=== PATIENT | male | born 1955 | race Hispanic/Latino ===

== ENCOUNTER 2016-11-14 09:49 | Outpatient (CLI) | payer MEDICARE ==
[2016-11-14] MEDS ORDERED: XYLOCAINE TOPICAL 4% TP ONE ×2 (10:36→16:01)
[2016-11-14] MEDS ORDERED: NACL 0.9% 500 ML IR ONE (12:28)
[2016-11-14] MEDS ORDERED: NACL 0.9% IR ONE (15:59)
== END 2016-11-14 09:50 | disposition home or self-care (01) ==
LOC: WOUND 09:49
PROVIDERS: ATTEND Internal Medicine
DX: I87.311 Chronic venous hypertension (idiopathic) with ulcer of right lower extremity (principal); L97.811 Non-pressure chronic ulcer of other part of right lower leg limited to breakdown of skin; M05.59 Rheumatoid polyneuropathy with rheumatoid arthritis of multiple sites; M06.9 Rheumatoid arthritis, unspecified; F17.210 Nicotine dependence, cigarettes, uncomplicated

== ENCOUNTER 2016-11-21 09:55 | Outpatient (CLI) | payer MEDICARE ==
[2016-11-21] MEDS ORDERED: XYLOCAINE TOPICAL 4% TP ONE ×2 (10:38→16:00)
== END 2016-11-21 09:56 | disposition home or self-care (01) ==
LOC: WOUND 09:55
PROVIDERS: ATTEND Surgery
DX: I87.311 Chronic venous hypertension (idiopathic) with ulcer of right lower extremity (principal); L97.811 Non-pressure chronic ulcer of other part of right lower leg limited to breakdown of skin; M05.59 Rheumatoid polyneuropathy with rheumatoid arthritis of multiple sites; F17.210 Nicotine dependence, cigarettes, uncomplicated

== ENCOUNTER 2016-11-26 09:10 | Outpatient (CLI) | payer MEDICARE ==
[2016-11-26 09:39] LABS: Hematocrit 33.3 % (35.5-45.6); Hemoglobin 10.3 gm/dl (11.8-15.2); Mean Corpuscular HGB Conc 31 % (32-34); Mean Corpuscular Volume 80 fl (84-94); Platelet Count 395 K/mm3 (140-440); Red Blood Count 4.16 M/mm3 (3.65-5.03); Red Cell Distribution Width 18.1 % (13.2-15.2); White Blood Count 11.2 K/mm3 (4.5-11.0)
[2016-11-26 09:40] LABS: Mean Corpuscular Hemoglobin 25 pg (28-32)
[2016-11-26 10:04] LABS: Alanine Aminotransferase 17 units/L (7-56); Albumin 3.2 g/dL (3.9-5); Albumin/Globulin Ratio 0.7 %; Alkaline Phosphatase 77 units/L (35-129); Anion Gap 19 mmol/L; Blood Urea Nitrogen 20 mg/dL (9-20); Carbon Dioxide 24 mmol/L (22-30); Chloride 100.9 mmol/L (98-107); Glucose 127 mg/dL (75-100); Potassium 4.2 mmol/L (3.6-5.0); Sodium 140 mmol/L (137-145); Total Protein 7.5 g/dL (6.3-8.2)
== END 2016-11-26 09:11 | disposition home or self-care (01) ==
LOC: LAB 09:10
PROVIDERS: ATTEND Surgery
DX: S81.801A Unspecified open wound, right lower leg, initial encounter (principal); X58.XXXA Exposure to other specified factors, initial encounter; Y93.89 Activity, other specified; Y92.89 Other specified places as the place of occurrence of the external cause; Y99.8 Other external cause status
CPT/HCPCS: 36415; 80053; 82040; 85027

== ENCOUNTER 2016-11-28 09:42 | Outpatient (CLI) | payer MEDICARE ==
[2016-11-28] MEDS ORDERED: XYLOCAINE TOPICAL 4% TP ONE ×2 (10:26→11:00)
== END 2016-11-28 09:43 | disposition home or self-care (01) ==
LOC: WOUND 09:42
PROVIDERS: ATTEND Surgery
DX: I87.311 Chronic venous hypertension (idiopathic) with ulcer of right lower extremity (principal); L97.811 Non-pressure chronic ulcer of other part of right lower leg limited to breakdown of skin; E44.1 Mild protein-calorie malnutrition; M05.59 Rheumatoid polyneuropathy with rheumatoid arthritis of multiple sites; F17.210 Nicotine dependence, cigarettes, uncomplicated

== ENCOUNTER 2016-12-05 09:52 | Outpatient (CLI) | payer MEDICARE ==
[2016-12-05] MEDS ORDERED: XYLOCAINE TOPICAL 4% TP ONE ×2 (10:21→15:33)
== END 2016-12-05 09:53 | disposition home or self-care (01) ==
LOC: WOUND 09:52
PROVIDERS: ATTEND Surgery
DX: I87.311 Chronic venous hypertension (idiopathic) with ulcer of right lower extremity (principal); L97.811 Non-pressure chronic ulcer of other part of right lower leg limited to breakdown of skin; M06.9 Rheumatoid arthritis, unspecified; F17.210 Nicotine dependence, cigarettes, uncomplicated

== ENCOUNTER 2016-12-12 09:48 | Outpatient (CLI) | payer MEDICARE ==
[2016-12-12] MEDS ORDERED: XYLOCAINE TOPICAL 4% TP ONE ×2 (10:30→10:57)
== END 2016-12-12 09:49 | disposition home or self-care (01) ==
LOC: WOUND 09:48
PROVIDERS: ATTEND Surgery
DX: I87.311 Chronic venous hypertension (idiopathic) with ulcer of right lower extremity (principal); L97.811 Non-pressure chronic ulcer of other part of right lower leg limited to breakdown of skin; M06.9 Rheumatoid arthritis, unspecified; F17.210 Nicotine dependence, cigarettes, uncomplicated

== ENCOUNTER 2016-12-19 09:43 | Outpatient (CLI) | payer MEDICARE ==
[2016-12-19] MEDS ORDERED: XYLOCAINE TOPICAL 4% TP ONE (10:49)
== END 2016-12-19 09:44 | disposition home or self-care (01) ==
LOC: WOUND 09:43
PROVIDERS: ATTEND Internal Medicine
DX: I87.311 Chronic venous hypertension (idiopathic) with ulcer of right lower extremity (principal); L97.811 Non-pressure chronic ulcer of other part of right lower leg limited to breakdown of skin; M06.9 Rheumatoid arthritis, unspecified; F17.210 Nicotine dependence, cigarettes, uncomplicated

== ENCOUNTER 2016-12-26 09:46 | Outpatient (CLI) | payer MEDICARE ==
[2016-12-26] MEDS ORDERED: XYLOCAINE TOPICAL 4% TP ONE ×2 (10:19→10:30)
== END 2016-12-26 09:47 | disposition home or self-care (01) ==
LOC: WOUND 09:46
PROVIDERS: ATTEND Surgery
DX: S81.801D Unspecified open wound, right lower leg, subsequent encounter (principal); S91.109D Unspecified open wound of unspecified toe(s) without damage to nail, subsequent encounter; M05.59 Rheumatoid polyneuropathy with rheumatoid arthritis of multiple sites; M19.90 Unspecified osteoarthritis, unspecified site; F17.210 Nicotine dependence, cigarettes, uncomplicated; X58.XXXD Exposure to other specified factors, subsequent encounter

== ENCOUNTER 2017-01-02 09:37 | Outpatient (CLI) | payer MEDICARE ==
[2017-01-02] MEDS ORDERED: XYLOCAINE TOPICAL 4% TP ONE (09:56)
[2017-01-02] MEDS ORDERED: AD OINTMENT TP PRN (11:08)
== END 2017-01-02 09:38 | disposition home or self-care (01) ==
LOC: WOUND 09:37
PROVIDERS: ATTEND Surgery
DX: I87.311 Chronic venous hypertension (idiopathic) with ulcer of right lower extremity (principal); L97.811 Non-pressure chronic ulcer of other part of right lower leg limited to breakdown of skin; M05.59 Rheumatoid polyneuropathy with rheumatoid arthritis of multiple sites; M19.90 Unspecified osteoarthritis, unspecified site; F17.210 Nicotine dependence, cigarettes, uncomplicated
CPT/HCPCS: A6250

== ENCOUNTER 2017-01-09 09:52 | Outpatient (CLI) | payer MEDICARE ==
[2017-01-09] MEDS ORDERED: XYLOCAINE TOPICAL 4% TP ONE (12:50)
== END 2017-01-09 09:53 | disposition home or self-care (01) ==
LOC: WOUND 09:52
PROVIDERS: ATTEND Surgery
DX: I87.311 Chronic venous hypertension (idiopathic) with ulcer of right lower extremity (principal); L97.811 Non-pressure chronic ulcer of other part of right lower leg limited to breakdown of skin; M06.9 Rheumatoid arthritis, unspecified; M19.90 Unspecified osteoarthritis, unspecified site; F17.210 Nicotine dependence, cigarettes, uncomplicated

== ENCOUNTER 2017-01-30 10:00 | Outpatient (CLI) | payer MEDICARE ==
[2017-01-30] MEDS ORDERED: XYLOCAINE TOPICAL 4% TP ONE ×2 (10:54→11:19)
== END 2017-01-30 10:01 | disposition home or self-care (01) ==
LOC: WOUND 10:00
PROVIDERS: ATTEND Surgery
DX: I87.311 Chronic venous hypertension (idiopathic) with ulcer of right lower extremity (principal); L97.511 Non-pressure chronic ulcer of other part of right foot limited to breakdown of skin; M06.9 Rheumatoid arthritis, unspecified; M19.90 Unspecified osteoarthritis, unspecified site; F17.210 Nicotine dependence, cigarettes, uncomplicated

== ENCOUNTER 2017-02-06 09:42 | Outpatient (CLI) | payer MEDICARE ==
[2017-02-06] MEDS ORDERED: XYLOCAINE TOPICAL 4% TP ONE ×2 (10:37→10:48)
[2017-02-06] MEDS ORDERED: SILVER NITRATE TP ONE ×2 (10:59→15:07)
== END 2017-02-06 09:43 | disposition home or self-care (01) ==
LOC: WOUND 09:42
PROVIDERS: ATTEND Surgery
DX: I87.311 Chronic venous hypertension (idiopathic) with ulcer of right lower extremity (principal); L97.811 Non-pressure chronic ulcer of other part of right lower leg limited to breakdown of skin; M06.9 Rheumatoid arthritis, unspecified; M19.90 Unspecified osteoarthritis, unspecified site; F17.210 Nicotine dependence, cigarettes, uncomplicated

== ENCOUNTER 2017-02-13 13:07 | Outpatient (CLI) | payer MEDICARE ==
[2017-02-13] MEDS ORDERED: XYLOCAINE TOPICAL 4% TP ONE ×2 (13:28→13:53)
[2017-02-13] MEDS ORDERED: SILVER NITRATE TP ONE ×2 (14:01→16:20)
== END 2017-02-13 13:08 | disposition home or self-care (01) ==
LOC: WOUND 13:07
PROVIDERS: ATTEND Surgery
DX: I87.311 Chronic venous hypertension (idiopathic) with ulcer of right lower extremity (principal); L97.811 Non-pressure chronic ulcer of other part of right lower leg limited to breakdown of skin; M06.9 Rheumatoid arthritis, unspecified; M19.90 Unspecified osteoarthritis, unspecified site; F17.210 Nicotine dependence, cigarettes, uncomplicated

== ENCOUNTER 2017-02-20 09:30 | Outpatient (CLI) | payer MEDICARE ==
[2017-02-20] MEDS ORDERED: XYLOCAINE TOPICAL 4% TP ONE ×2 (09:47→10:18)
== END 2017-02-20 09:31 | disposition home or self-care (01) ==
LOC: WOUND 09:30
PROVIDERS: ATTEND Surgery
DX: I87.311 Chronic venous hypertension (idiopathic) with ulcer of right lower extremity (principal); L97.811 Non-pressure chronic ulcer of other part of right lower leg limited to breakdown of skin; M06.9 Rheumatoid arthritis, unspecified; M19.90 Unspecified osteoarthritis, unspecified site; F17.210 Nicotine dependence, cigarettes, uncomplicated

== ENCOUNTER 2017-02-27 08:54 | Outpatient (CLI) | payer MEDICARE ==
[2017-02-27] MEDS ORDERED: XYLOCAINE TOPICAL 4% TP ONE ×2 (09:22→14:02)
[2017-02-27] MEDS ORDERED: NACL 0.9% 500 ML IR ONE (10:09)
[2017-02-27] MEDS ORDERED: NACL 0.9% IR PRN (14:02)
== END 2017-02-27 08:55 | disposition home or self-care (01) ==
LOC: WOUND 08:54
PROVIDERS: ATTEND Surgery
DX: I87.311 Chronic venous hypertension (idiopathic) with ulcer of right lower extremity (principal); L97.811 Non-pressure chronic ulcer of other part of right lower leg limited to breakdown of skin; M05.59 Rheumatoid polyneuropathy with rheumatoid arthritis of multiple sites; F17.200 Nicotine dependence, unspecified, uncomplicated

== ENCOUNTER 2017-03-06 08:50 | Outpatient (CLI) | payer MEDICARE ==
[2017-03-06] MEDS ORDERED: XYLOCAINE TOPICAL 4% TP ONE ×2 (09:30→09:40)
== END 2017-03-06 08:51 | disposition home or self-care (01) ==
LOC: WOUND 08:50
PROVIDERS: ATTEND Surgery
DX: I87.311 Chronic venous hypertension (idiopathic) with ulcer of right lower extremity (principal); L97.811 Non-pressure chronic ulcer of other part of right lower leg limited to breakdown of skin; M05.59 Rheumatoid polyneuropathy with rheumatoid arthritis of multiple sites; M19.90 Unspecified osteoarthritis, unspecified site; F17.200 Nicotine dependence, unspecified, uncomplicated

== ENCOUNTER 2017-03-13 08:46 | Outpatient (CLI) | payer MEDICARE ==
[2017-03-13] MEDS ORDERED: XYLOCAINE TOPICAL 4% TP ONE ×2 (09:02→09:40)
== END 2017-03-13 08:47 | disposition home or self-care (01) ==
LOC: WOUND 08:46
PROVIDERS: ATTEND Surgery
DX: I87.311 Chronic venous hypertension (idiopathic) with ulcer of right lower extremity (principal); L97.811 Non-pressure chronic ulcer of other part of right lower leg limited to breakdown of skin; M06.9 Rheumatoid arthritis, unspecified; M19.90 Unspecified osteoarthritis, unspecified site; F17.210 Nicotine dependence, cigarettes, uncomplicated

== ENCOUNTER 2017-03-20 09:08 | Outpatient (CLI) | payer MEDICARE ==
[2017-03-20] MEDS ORDERED: XYLOCAINE TOPICAL 4% TP ONE ×2 (09:32→11:01)
[2017-03-20] MEDS ORDERED: XYLOCAINE TOPICAL 2% TP ONE (09:33)
== END 2017-03-20 09:09 | disposition home or self-care (01) ==
LOC: WOUND 09:08
PROVIDERS: ATTEND Surgery
DX: I87.311 Chronic venous hypertension (idiopathic) with ulcer of right lower extremity (principal); L97.811 Non-pressure chronic ulcer of other part of right lower leg limited to breakdown of skin; M06.9 Rheumatoid arthritis, unspecified; M19.90 Unspecified osteoarthritis, unspecified site; F17.210 Nicotine dependence, cigarettes, uncomplicated

== ENCOUNTER 2017-03-27 09:00 | Outpatient (CLI) | payer MEDICARE ==
[2017-03-27] MEDS ORDERED: XYLOCAINE TOPICAL 2% TP ONE (09:22)
[2017-03-27] MEDS ORDERED: XYLOCAINE TOPICAL 4% TP ONE (09:22)
[2017-04-03] MEDS ORDERED: XYLOCAINE TOPICAL 2% ONE (14:14)
[2017-04-03] MEDS ORDERED: XYLOCAINE TOPICAL 4% TP ONE ×2 (14:14→14:18)
== END 2017-04-03 13:40 | disposition home or self-care (01) ==
LOC: WOUND 09:00
PROVIDERS: ATTEND Surgery
DX: I87.311 Chronic venous hypertension (idiopathic) with ulcer of right lower extremity (principal); L97.811 Non-pressure chronic ulcer of other part of right lower leg limited to breakdown of skin; M06.9 Rheumatoid arthritis, unspecified; M19.90 Unspecified osteoarthritis, unspecified site; F17.210 Nicotine dependence, cigarettes, uncomplicated

== ENCOUNTER 2017-04-03 13:39 | Outpatient (CLI) | payer MEDICARE | END 2017-04-03 13:40 | disposition home or self-care (01) | LOC: WOUND 13:39 | PROVIDERS: ATTEND Surgery | DX: I87.311 Chronic venous hypertension (idiopathic) with ulcer of right lower extremity (principal); L97.511 Non-pressure chronic ulcer of other part of right foot limited to breakdown of skin; L97.811 Non-pressure chronic ulcer of other part of right lower leg limited to breakdown of skin; M05.59 Rheumatoid polyneuropathy with rheumatoid arthritis of multiple sites; M19.90 Unspecified osteoarthritis, unspecified site; F17.200 Nicotine dependence, unspecified, uncomplicated ==

== ENCOUNTER 2017-04-10 08:36 | Outpatient (CLI) | payer MEDICARE ==
[2017-04-10] MEDS ORDERED: XYLOCAINE TOPICAL 2% TP ONE ×2 (08:49→15:53)
[2017-04-10] MEDS ORDERED: XYLOCAINE TOPICAL 4% TP ONE ×2 (08:50→15:53)
== END 2017-04-10 08:37 | disposition home or self-care (01) ==
LOC: WOUND 08:36
PROVIDERS: ATTEND Surgery
DX: I87.311 Chronic venous hypertension (idiopathic) with ulcer of right lower extremity (principal); L97.811 Non-pressure chronic ulcer of other part of right lower leg limited to breakdown of skin; L97.511 Non-pressure chronic ulcer of other part of right foot limited to breakdown of skin; M05.59 Rheumatoid polyneuropathy with rheumatoid arthritis of multiple sites; M19.90 Unspecified osteoarthritis, unspecified site; F17.200 Nicotine dependence, unspecified, uncomplicated

== ENCOUNTER 2017-04-17 09:58 | Outpatient (CLI) | payer MEDICARE ==
[2017-04-17] MEDS ORDERED: XYLOCAINE TOPICAL 4% TP ONE (10:41)
[2017-04-17] MEDS ORDERED: XYLOCAINE TOPICAL 2% TP ONE (10:42)
== END 2017-04-17 09:59 | disposition home or self-care (01) ==
LOC: WOUND 09:58
PROVIDERS: ATTEND Surgery
DX: I87.311 Chronic venous hypertension (idiopathic) with ulcer of right lower extremity (principal); L97.811 Non-pressure chronic ulcer of other part of right lower leg limited to breakdown of skin; M06.9 Rheumatoid arthritis, unspecified; M19.90 Unspecified osteoarthritis, unspecified site; F17.210 Nicotine dependence, cigarettes, uncomplicated

== ENCOUNTER 2017-04-24 10:14 | Outpatient (CLI) | payer MEDICARE ==
[2017-04-24] MEDS ORDERED: XYLOCAINE TOPICAL 4% TP ONE ×2 (11:00→12:00)
[2017-04-24] MEDS ORDERED: SILVER NITRATE TP ONE ×2 (11:22→15:05)
[2017-04-24] MEDS ORDERED: XYLOCAINE TOPICAL 2% TP ONE (11:30)
== END 2017-04-24 10:15 | disposition home or self-care (01) ==
LOC: WOUND 10:14
PROVIDERS: ATTEND Surgery
DX: I87.311 Chronic venous hypertension (idiopathic) with ulcer of right lower extremity (principal); L97.811 Non-pressure chronic ulcer of other part of right lower leg limited to breakdown of skin; M06.9 Rheumatoid arthritis, unspecified; M19.90 Unspecified osteoarthritis, unspecified site; F17.210 Nicotine dependence, cigarettes, uncomplicated

== ENCOUNTER 2017-05-01 09:54 | Outpatient (CLI) | payer MEDICARE ==
[2017-05-01] MEDS ORDERED: XYLOCAINE TOPICAL 2% TP ONE ×2 (10:00→10:02)
[2017-05-01] MEDS ORDERED: XYLOCAINE TOPICAL 4% TP ONE ×2 (10:00→10:02)
== END 2017-05-01 09:55 | disposition home or self-care (01) ==
LOC: WOUND 09:54
PROVIDERS: ATTEND Surgery
DX: I87.311 Chronic venous hypertension (idiopathic) with ulcer of right lower extremity (principal); L97.811 Non-pressure chronic ulcer of other part of right lower leg limited to breakdown of skin; M06.9 Rheumatoid arthritis, unspecified; F17.210 Nicotine dependence, cigarettes, uncomplicated

== ENCOUNTER 2017-05-08 09:51 | Outpatient (CLI) | payer MEDICARE ==
[2017-05-08] MEDS ORDERED: XYLOCAINE TOPICAL 4% TP ONE ×2 (10:33→12:00)
[2017-05-08] MEDS ORDERED: XYLOCAINE TOPICAL 2% TP ONE ×2 (10:33→11:09)
[2017-05-08] MEDS ORDERED: NACL 0.9% IR PRN (11:45)
[2017-05-08] MEDS ORDERED: NACL 0.9% 500 ML IR ONE (11:50)
== END 2017-05-08 09:52 | disposition home or self-care (01) ==
LOC: WOUND 09:51
PROVIDERS: ATTEND Surgery
DX: I87.311 Chronic venous hypertension (idiopathic) with ulcer of right lower extremity (principal); L97.511 Non-pressure chronic ulcer of other part of right foot limited to breakdown of skin; M06.9 Rheumatoid arthritis, unspecified; M19.90 Unspecified osteoarthritis, unspecified site; F17.210 Nicotine dependence, cigarettes, uncomplicated

== ENCOUNTER 2017-05-22 10:10 | Outpatient (CLI) | payer MEDICARE ==
[2017-05-22] MEDS ORDERED: XYLOCAINE TOPICAL 4% TP ONE ×2 (10:31→10:32)
[2017-05-22] MEDS ORDERED: NACL 0.9% 500 ML IR ONE (10:31)
[2017-05-22] MEDS ORDERED: XYLOCAINE TOPICAL 2% TP ONE ×2 (10:31→10:33)
[2017-05-22] MEDS ORDERED: NACL 0.9% IR PRN (10:34)
== END 2017-05-22 10:11 | disposition home or self-care (01) ==
LOC: WOUND 10:10
PROVIDERS: ATTEND Surgery
DX: I87.311 Chronic venous hypertension (idiopathic) with ulcer of right lower extremity (principal); L97.811 Non-pressure chronic ulcer of other part of right lower leg limited to breakdown of skin; M06.9 Rheumatoid arthritis, unspecified; M19.90 Unspecified osteoarthritis, unspecified site; F17.210 Nicotine dependence, cigarettes, uncomplicated

== ENCOUNTER 2017-05-29 09:43 | Outpatient (CLI) | payer MEDICARE ==
[2017-05-29] MEDS ORDERED: XYLOCAINE TOPICAL 2% TP ONE ×2 (09:59→10:08)
[2017-05-29] MEDS ORDERED: XYLOCAINE TOPICAL 4% TP ONE ×3 (09:59→10:09)
== END 2017-05-29 09:44 | disposition home or self-care (01) ==
LOC: WOUND 09:43
PROVIDERS: ATTEND Surgery
DX: I87.311 Chronic venous hypertension (idiopathic) with ulcer of right lower extremity (principal); L97.811 Non-pressure chronic ulcer of other part of right lower leg limited to breakdown of skin; M19.90 Unspecified osteoarthritis, unspecified site; F17.210 Nicotine dependence, cigarettes, uncomplicated

== ENCOUNTER 2017-06-05 09:26 | Outpatient (CLI) | payer MEDICARE ==
[2017-06-05] MEDS ORDERED: XYLOCAINE TOPICAL 4% TP ONE ×2 (09:40→11:35)
[2017-06-05] MEDS ORDERED: NACL 0.9% 500 ML IR ONE (09:40)
[2017-06-05] MEDS ORDERED: NACL 0.9% 1,000 ML IR ONE (11:20)
[2017-06-05] MEDS ORDERED: NACL 0.9% IR PRN (11:35)
== END 2017-06-05 09:27 | disposition home or self-care (01) ==
LOC: WOUND 09:26
PROVIDERS: ATTEND Surgery
DX: I87.311 Chronic venous hypertension (idiopathic) with ulcer of right lower extremity (principal); L97.511 Non-pressure chronic ulcer of other part of right foot limited to breakdown of skin; L97.811 Non-pressure chronic ulcer of other part of right lower leg limited to breakdown of skin; M19.90 Unspecified osteoarthritis, unspecified site; F17.210 Nicotine dependence, cigarettes, uncomplicated

== ENCOUNTER 2017-06-12 10:06 | Outpatient (CLI) | payer MEDICARE ==
[2017-06-12] MEDS ORDERED: XYLOCAINE TOPICAL 2% 5ML ONE (10:34)
[2017-06-12] MEDS ORDERED: XYLOCAINE TOPICAL 4% TP ONE ×3 (10:34→10:50)
[2017-06-12] MEDS ORDERED: XYLOCAINE TOPICAL 2% 30ML TP ONE (10:46)
[2017-06-12 12:28] LABS: Hematocrit 33.7 % (35.5-45.6); Hemoglobin 10.3 gm/dl (11.8-15.2); Mean Corpuscular HGB Conc 31 % (32-34); Mean Corpuscular Hemoglobin 22 pg (28-32); Mean Corpuscular Volume 72 fl (84-94); Platelet Count 476 K/mm3 (140-440); Red Blood Count 4.72 M/mm3 (3.65-5.03); Red Cell Distribution Width 18.5 % (13.2-15.2); White Blood Count 12.6 K/mm3 (4.5-11.0)
== END 2017-06-12 10:07 | disposition home or self-care (01) ==
LOC: WOUND 10:06
PROVIDERS: ATTEND Surgery
DX: I87.311 Chronic venous hypertension (idiopathic) with ulcer of right lower extremity (principal); L97.811 Non-pressure chronic ulcer of other part of right lower leg limited to breakdown of skin; L97.511 Non-pressure chronic ulcer of other part of right foot limited to breakdown of skin; M05.59 Rheumatoid polyneuropathy with rheumatoid arthritis of multiple sites; F17.210 Nicotine dependence, cigarettes, uncomplicated
CPT/HCPCS: 36415; 85027

== ENCOUNTER 2017-06-17 17:41 | Emergency (ER) | payer MEDICARE ==
--- NOTE | 2017-06-18 02:32 | Emergency Department Report ---
- General Chief Complaint: Wound/Laceration Stated Complaint: BLEEDING LEG ULCER Time Seen by Provider: 06/18/17 02:10 Source: patient Mode of arrival: Wheelchair Limitations: No Limitations - History of Present Illness Initial Comments: 61 yo male who comes in today due to a dressing change. He states that a friend was changing his dressing to his right lower extremity on today and it started to bleed. He states that he sees wound care each Saturday. The wound is a chronic wound and has been present times greater than one year. -: This evening Location: other (right lower extremity) Extremity Location: Right: Lower Leg, Ankle, Foot Place: home Patient Tetanus UTD: Yes Context: other (chronic wound ulcer ) Associated Symptoms: pain Treatments Prior to Arrival: other (pain medication/dressing ) - Related Data Home Medications Medication Instructions Recorded Confirmed Last Taken Naproxen Sodium [Aleve TAB] 660 mg PO DAILY 01/21/17 01/21/17 01/21/17 Previous Rx's Medication Instructions Recorded Last Taken Type HYDROcodone/APAP 10-325 [Anderson 1 each PO PRN #14 tablet 01/23/17 Unknown Rx 10-325 mg TAB] Multivitamin Tab [Multiple Vitamin 1 each PO QDAY #30 tablet 01/23/17 Unknown Rx TAB (Theragran)] Allergies Allergy/AdvReac Type Severity Reaction Status Date / Time Anesthetics - Amide Type Allergy Unknown Verified 11/14/16 10:37 anesthe AdvReac Unknown Uncoded 11/14/16 10:37 ED Review of Systems ROS: Stated complaint: BLEEDING LEG ULCER Other details as noted in HPI Constitutional: denies: chills, fever Eyes: denies: eye pain, eye discharge, vision change ENT: denies: ear pain, throat pain Respiratory: denies: cough, shortness of breath, wheezing Cardiovascular: denies: chest pain, palpitations Endocrine: no symptoms reported Gastrointestinal: denies: abdominal pain, nausea, diarrhea Genitourinary: denies: urgency, dysuria Musculoskeletal: as per HPI Skin: as per HPI Neurological: denies: headache, weakness, paresthesias Psychiatric: denies: anxiety, depression Hematological/Lymphatic: as per HPI. denies: easy bruising ED Past Medical Hx - Past Medical History Previous Medical History?: Yes Hx Congestive Heart Failure: No Hx Diabetes: No Hx Deep Vein Thrombosis: Yes (bilaterally) Hx Arthritis: Yes Hx Asthma: No Hx COPD: No - Surgical History Past Surgical History?: Yes Additional Surgical History: Callus removed from right foot. Wrist surgery, "vascular surgery to shrink veins and right lower extremity" - Social History Smoking Status: Current Every Day Smoker Substance Use Type: None - Medications Home Medications: Home Medications Medication Instructions Recorded Confirmed Last Taken Type Naproxen Sodium [Aleve TAB] 660 mg PO DAILY 01/21/17 01/21/17 01/21/17 History HYDROcodone/APAP 10-325 [Anderson 1 each PO PRN #14 tablet 01/23/17 Unknown Rx 10-325 mg TAB] Multivitamin Tab [Multiple Vitamin 1 each PO QDAY #30 tablet 01/23/17 Unknown Rx TAB (Theragran)] ED Physical Exam - General Limitations: No Limitations General appearance: alert, in no apparent distress - Head Head exam: Present: atraumatic, normocephalic - Eye Eye exam: Present: normal appearance - ENT ENT exam: Present: other (poor dentition ) - Neck Neck exam: Present: normal inspection - Respiratory Respiratory exam: Present: normal lung sounds bilaterally. Absent: respiratory distress - Cardiovascular Cardiovascular Exam: Present: regular rate, normal rhythm. Absent: systolic murmur, diastolic murmur, rubs, gallop - Expanded Lower Extremity Exam Right Lower Leg exam: Present: tenderness, swelling (chronic wound ulcer-right lower extremity, foot, ankle ) Ankle exam: Present: tenderness, swelling (chronic wound ) Foot/Toe exam: Present: tenderness, swelling (wound-2nd digit ) ED Course Vital Signs 06/17/17 17:56 Temperature 98.7 F Pulse Rate 84 Respiratory 16 Rate Blood Pressure 141/66 O2 Sat by Pulse 100 Oximetry - Reevaluation(s) Reevaluation #1: 06/18/17 02:33 Dressing change in the ED. Home to follow up with wound care. ED Medical Decision Making - Medical Decision Making Chronic wound-right lower extremity - Differential Diagnosis chronic wound-right lower extremity Critical care attestation.: If time is entered above; I have spent that time in minutes in the direct care of this critically ill patient, excluding procedure time. ED Disposition Clinical Impression: Chronic wound of extremity Disposition: DC- TO HOME OR SELFCARE Is pt being admited?: No Does the pt Need Aspirin: No Condition: Stable Instructions: Chronic Wound Care (ED) Additional Instructions: May resume your regularly scheduled medication and wound care regimen. Follow up with wound care on Saturday. Referrals: OLGA KEVIN MD [Primary Care Provider] - 3-5 Days Time of Disposition: 02:35
[2017-06-18 03:28] VITALS: BP 136/64
== END 2017-06-18 03:14 | disposition home or self-care (01) ==
LOC: ED 17:41
DX: S81.801A Unspecified open wound, right lower leg, initial encounter (principal); F17.200 Nicotine dependence, unspecified, uncomplicated; Z88.6 Allergy status to analgesic agent; X58.XXXA Exposure to other specified factors, initial encounter; Y93.89 Activity, other specified; Y92.89 Other specified places as the place of occurrence of the external cause; Y99.8 Other external cause status
CPT/HCPCS: 99282

== ENCOUNTER 2017-06-19 09:18 | Outpatient (CLI) | payer MEDICARE ==
[2017-06-19] MEDS ORDERED: XYLOCAINE TOPICAL 4% TP ONE ×2 (10:05→15:35)
[2017-06-19] MEDS ORDERED: NACL 0.9% 500 ML IR ONE (10:05)
[2017-06-19] MEDS ORDERED: NACL 0.9% IR PRN (15:35)
== END 2017-06-19 09:19 | disposition home or self-care (01) ==
LOC: WOUND 09:18
PROVIDERS: ATTEND Surgery
DX: I87.311 Chronic venous hypertension (idiopathic) with ulcer of right lower extremity (principal); L97.811 Non-pressure chronic ulcer of other part of right lower leg limited to breakdown of skin; M06.9 Rheumatoid arthritis, unspecified; M19.90 Unspecified osteoarthritis, unspecified site; F17.210 Nicotine dependence, cigarettes, uncomplicated

== ENCOUNTER 2017-06-26 09:27 | Outpatient (CLI) | payer MEDICARE ==
[2017-06-26] MEDS ORDERED: XYLOCAINE TOPICAL 4% TP ONE ×2 (10:11→15:47)
[2017-06-26] MEDS ORDERED: XYLOCAINE TOPICAL 2% 5ML ONE (10:11)
[2017-06-26] MEDS ORDERED: XYLOCAINE TOPICAL 2% 5ML TP ONE (15:47)
== END 2017-06-26 09:28 | disposition home or self-care (01) ==
LOC: WOUND 09:27
PROVIDERS: ATTEND Surgery
DX: I87.311 Chronic venous hypertension (idiopathic) with ulcer of right lower extremity (principal); L97.811 Non-pressure chronic ulcer of other part of right lower leg limited to breakdown of skin; L97.511 Non-pressure chronic ulcer of other part of right foot limited to breakdown of skin; M19.90 Unspecified osteoarthritis, unspecified site; F17.210 Nicotine dependence, cigarettes, uncomplicated

== ENCOUNTER 2017-07-03 09:51 | Outpatient (CLI) | payer MEDICARE ==
[2017-07-03] MEDS ORDERED: XYLOCAINE TOPICAL 4% TP ONE ×4 (11:25→15:06)
== END 2017-07-03 09:52 | disposition home or self-care (01) ==
LOC: WOUND 09:51
PROVIDERS: ATTEND Surgery
DX: I87.311 Chronic venous hypertension (idiopathic) with ulcer of right lower extremity (principal); L97.811 Non-pressure chronic ulcer of other part of right lower leg limited to breakdown of skin; M06.9 Rheumatoid arthritis, unspecified; M19.90 Unspecified osteoarthritis, unspecified site; F17.210 Nicotine dependence, cigarettes, uncomplicated

== ENCOUNTER 2017-07-10 10:06 | Outpatient (CLI) | payer MEDICARE ==
[2017-07-10] MEDS ORDERED: XYLOCAINE TOPICAL 4% TP ONE (10:14)
[2017-07-10] MEDS ORDERED: NACL 0.9% 500 ML IR ONE (10:21)
[2017-07-10] MEDS ORDERED: NACL 0.9% IR PRN (10:45)
== END 2017-07-10 10:07 | disposition home or self-care (01) ==
LOC: WOUND 10:06
PROVIDERS: ATTEND Surgery
DX: I87.331 Chronic venous hypertension (idiopathic) with ulcer and inflammation of right lower extremity (principal); L97.811 Non-pressure chronic ulcer of other part of right lower leg limited to breakdown of skin; S91.104D Unspecified open wound of right lesser toe(s) without damage to nail, subsequent encounter; S81.801D Unspecified open wound, right lower leg, subsequent encounter; M19.90 Unspecified osteoarthritis, unspecified site; M05.59 Rheumatoid polyneuropathy with rheumatoid arthritis of multiple sites; F17.210 Nicotine dependence, cigarettes, uncomplicated; X58.XXXD Exposure to other specified factors, subsequent encounter

== ENCOUNTER 2017-07-17 10:02 | Outpatient (CLI) | payer MEDICARE ==
[2017-07-17] MEDS ORDERED: XYLOCAINE TOPICAL 4% TP ONE ×2 (10:19→10:21)
[2017-07-17] MEDS ORDERED: NACL 0.9% 500 ML IR ONE (11:02)
[2017-07-17] MEDS ORDERED: NACL 0.9% IR PRN (14:22)
[2017-07-18] MEDS ORDERED: XYLOCAINE TOPICAL 4% TP ONE (15:15)
== END 2017-07-17 10:03 | disposition home or self-care (01) ==
LOC: WOUND 10:02
PROVIDERS: ATTEND Surgery
DX: I87.311 Chronic venous hypertension (idiopathic) with ulcer of right lower extremity (principal); L97.811 Non-pressure chronic ulcer of other part of right lower leg limited to breakdown of skin; S91.104D Unspecified open wound of right lesser toe(s) without damage to nail, subsequent encounter; S81.801D Unspecified open wound, right lower leg, subsequent encounter; M05.59 Rheumatoid polyneuropathy with rheumatoid arthritis of multiple sites; M19.90 Unspecified osteoarthritis, unspecified site; F17.200 Nicotine dependence, unspecified, uncomplicated; X58.XXXD Exposure to other specified factors, subsequent encounter

== ENCOUNTER 2017-07-31 10:03 | Outpatient (CLI) | payer MEDICARE ==
[2017-07-31] MEDS ORDERED: XYLOCAINE TOPICAL 4% TP ONE (10:21)
[2017-07-31] MEDS ORDERED: NACL 0.9% IR PRN (10:22)
== END 2017-07-31 10:04 | disposition home or self-care (01) ==
LOC: WOUND 10:03
PROVIDERS: ATTEND Surgery
DX: I87.311 Chronic venous hypertension (idiopathic) with ulcer of right lower extremity (principal); L97.811 Non-pressure chronic ulcer of other part of right lower leg limited to breakdown of skin; S91.109D Unspecified open wound of unspecified toe(s) without damage to nail, subsequent encounter; M19.90 Unspecified osteoarthritis, unspecified site; M06.9 Rheumatoid arthritis, unspecified; F17.210 Nicotine dependence, cigarettes, uncomplicated; X58.XXXD Exposure to other specified factors, subsequent encounter

== ENCOUNTER 2017-08-07 10:09 | Outpatient (CLI) | payer MEDICARE ==
[2017-08-07] MEDS ORDERED: NACL 0.9% IR PRN (10:26)
[2017-08-07] MEDS ORDERED: XYLOCAINE TOPICAL 4% TP ONE (10:27)
== END 2017-08-07 10:10 | disposition home or self-care (01) ==
LOC: WOUND 10:09
PROVIDERS: ATTEND Surgery
DX: I87.311 Chronic venous hypertension (idiopathic) with ulcer of right lower extremity (principal); M06.9 Rheumatoid arthritis, unspecified; M19.90 Unspecified osteoarthritis, unspecified site; F17.210 Nicotine dependence, cigarettes, uncomplicated

== ENCOUNTER 2017-08-14 10:02 | Outpatient (CLI) | payer MEDICARE ==
[2017-08-14] MEDS ORDERED: XYLOCAINE TOPICAL 4% TP ONE ×3 (10:46→11:06)
[2017-08-14] MEDS ORDERED: SODIUM CHLORIDE FLUSH SYRINGE 10 ML IV ONE (11:03)
[2017-08-14] MEDS ORDERED: SODIUM CHLORIDE FLUSH SYRINGE 10 ML IV PRN (11:07)
== END 2017-08-14 10:03 | disposition home or self-care (01) ==
LOC: WOUND 10:02
PROVIDERS: ATTEND Surgery
DX: I87.311 Chronic venous hypertension (idiopathic) with ulcer of right lower extremity (principal); L97.811 Non-pressure chronic ulcer of other part of right lower leg limited to breakdown of skin; L97.511 Non-pressure chronic ulcer of other part of right foot limited to breakdown of skin; M05.59 Rheumatoid polyneuropathy with rheumatoid arthritis of multiple sites; M19.90 Unspecified osteoarthritis, unspecified site; F17.210 Nicotine dependence, cigarettes, uncomplicated
CPT/HCPCS: 11042; 11045; 15275; Q4158; 15277

== ENCOUNTER 2017-08-21 10:00 | Outpatient (CLI) | payer MEDICARE ==
[2017-08-21] MEDS ORDERED: XYLOCAINE TOPICAL 4% TP ONE ×2 (10:14→10:21)
[2017-08-21] MEDS ORDERED: NACL 0.9% IR PRN (10:15)
[2017-08-21] MEDS ORDERED: NACL 0.9% 500 ML IR ONE (10:21)
[2017-08-21] MEDS ORDERED: SODIUM CHLORIDE FLUSH SYRINGE 10 ML IV ONE (11:15)
[2017-08-21] MEDS ORDERED: AD OINTMENT TP PRN (11:37)
== END 2017-08-21 10:01 | disposition home or self-care (01) ==
LOC: WOUND 10:00
PROVIDERS: ATTEND Surgery
DX: I87.311 Chronic venous hypertension (idiopathic) with ulcer of right lower extremity (principal); L97.811 Non-pressure chronic ulcer of other part of right lower leg limited to breakdown of skin; M06.9 Rheumatoid arthritis, unspecified; M19.90 Unspecified osteoarthritis, unspecified site; F17.210 Nicotine dependence, cigarettes, uncomplicated
CPT/HCPCS: 15273; 15274; Q4158; A6250

== ENCOUNTER 2017-08-28 10:02 | Outpatient (CLI) | payer MEDICARE ==
[2017-08-28] MEDS ORDERED: XYLOCAINE TOPICAL 4% TP ONE (10:13)
[2017-08-28] MEDS ORDERED: SODIUM CHLORIDE FLUSH SYRINGE 10 ML IV ONE (10:22)
[2017-08-28] MEDS ORDERED: SILVER NITRATE TP ONE ×2 (11:05→13:34)
[2017-08-28] MEDS ORDERED: SODIUM CHLORIDE FLUSH SYRINGE 10 ML IV PRN (14:29)
== END 2017-08-28 10:03 | disposition home or self-care (01) ==
LOC: WOUND 10:02
PROVIDERS: ATTEND Surgery
DX: I87.311 Chronic venous hypertension (idiopathic) with ulcer of right lower extremity (principal); L97.811 Non-pressure chronic ulcer of other part of right lower leg limited to breakdown of skin; S91.109D Unspecified open wound of unspecified toe(s) without damage to nail, subsequent encounter; M06.9 Rheumatoid arthritis, unspecified; M19.90 Unspecified osteoarthritis, unspecified site; F17.210 Nicotine dependence, cigarettes, uncomplicated; X58.XXXD Exposure to other specified factors, subsequent encounter
CPT/HCPCS: 15277; Q4158

== ENCOUNTER 2017-09-04 09:55 | Outpatient (CLI) | payer MEDICARE ==
[2017-09-04] MEDS ORDERED: XYLOCAINE TOPICAL 4% TP ONE ×2 (10:02→10:09)
[2017-09-04] MEDS ORDERED: SODIUM CHLORIDE FLUSH SYRINGE 10 ML IV ONE (10:19)
== END 2017-09-04 09:56 | disposition home or self-care (01) ==
LOC: WOUND 09:55
PROVIDERS: ATTEND Surgery
DX: I87.311 Chronic venous hypertension (idiopathic) with ulcer of right lower extremity (principal); L97.811 Non-pressure chronic ulcer of other part of right lower leg limited to breakdown of skin; S91.104D Unspecified open wound of right lesser toe(s) without damage to nail, subsequent encounter; M05.59 Rheumatoid polyneuropathy with rheumatoid arthritis of multiple sites; M19.90 Unspecified osteoarthritis, unspecified site; F17.210 Nicotine dependence, cigarettes, uncomplicated; X58.XXXD Exposure to other specified factors, subsequent encounter

== ENCOUNTER 2017-09-11 09:55 | Outpatient (CLI) | payer MEDICARE ==
[2017-09-11] MEDS ORDERED: XYLOCAINE TOPICAL 4% TP ONE (12:00)
[2017-09-11] MEDS ORDERED: SODIUM CHLORIDE FLUSH SYRINGE 10 ML IV ONE (12:30)
== END 2017-09-11 09:56 | disposition home or self-care (01) ==
LOC: WOUND 09:55
PROVIDERS: ATTEND Surgery
DX: I87.311 Chronic venous hypertension (idiopathic) with ulcer of right lower extremity (principal); L97.811 Non-pressure chronic ulcer of other part of right lower leg limited to breakdown of skin; S91.104D Unspecified open wound of right lesser toe(s) without damage to nail, subsequent encounter; M06.9 Rheumatoid arthritis, unspecified; F17.210 Nicotine dependence, cigarettes, uncomplicated; X58.XXXD Exposure to other specified factors, subsequent encounter
CPT/HCPCS: 11042; 15273; 15274; Q4158; 15275; 15276

== ENCOUNTER 2017-09-18 10:00 | Outpatient (CLI) | payer MEDICARE ==
[2017-09-18] MEDS ORDERED: XYLOCAINE TOPICAL 4% TP ONE (10:11)
[2017-09-18] MEDS ORDERED: NACL 0.9% IR PRN (10:12)
[2017-09-18] MEDS ORDERED: SILVER NITRATE TP ONE ×2 (10:56→11:00)
== END 2017-09-18 10:01 | disposition home or self-care (01) ==
LOC: WOUND 10:00
PROVIDERS: ATTEND Surgery
DX: I87.311 Chronic venous hypertension (idiopathic) with ulcer of right lower extremity (principal); L97.811 Non-pressure chronic ulcer of other part of right lower leg limited to breakdown of skin; S91.104D Unspecified open wound of right lesser toe(s) without damage to nail, subsequent encounter; M06.9 Rheumatoid arthritis, unspecified; F17.210 Nicotine dependence, cigarettes, uncomplicated; X58.XXXD Exposure to other specified factors, subsequent encounter
CPT/HCPCS: 11042; 15273; 15274; Q4158; 15275; 15276

== ENCOUNTER 2017-09-25 10:03 | Outpatient (CLI) | payer MEDICARE ==
[2017-09-25] MEDS ORDERED: XYLOCAINE TOPICAL 4% TP ONE ×2 (10:30→10:41)
[2017-09-25] MEDS ORDERED: SILVER NITRATE TP ONE (10:57)
== END 2017-09-25 10:04 | disposition home or self-care (01) ==
LOC: WOUND 10:03
PROVIDERS: ATTEND Surgery
DX: I87.311 Chronic venous hypertension (idiopathic) with ulcer of right lower extremity (principal); L97.811 Non-pressure chronic ulcer of other part of right lower leg limited to breakdown of skin; S91.104D Unspecified open wound of right lesser toe(s) without damage to nail, subsequent encounter; M19.90 Unspecified osteoarthritis, unspecified site; M06.9 Rheumatoid arthritis, unspecified; F17.210 Nicotine dependence, cigarettes, uncomplicated; X58.XXXD Exposure to other specified factors, subsequent encounter
CPT/HCPCS: 17250

== ENCOUNTER 2017-10-02 10:09 | Outpatient (CLI) | payer MEDICARE ==
[2017-10-02] MEDS ORDERED: XYLOCAINE TOPICAL 4% TP ONE ×3 (10:40→10:52)
[2017-10-02] MEDS ORDERED: SODIUM CHLORIDE FLUSH SYRINGE 10 ML IV ONE ×2 (10:56→13:29)
== END 2017-10-02 10:10 | disposition home or self-care (01) ==
LOC: WOUND 10:09
PROVIDERS: ATTEND Surgery
DX: I87.311 Chronic venous hypertension (idiopathic) with ulcer of right lower extremity (principal); L97.811 Non-pressure chronic ulcer of other part of right lower leg limited to breakdown of skin; S91.104D Unspecified open wound of right lesser toe(s) without damage to nail, subsequent encounter; M06.9 Rheumatoid arthritis, unspecified; F17.210 Nicotine dependence, cigarettes, uncomplicated; X58.XXXD Exposure to other specified factors, subsequent encounter
CPT/HCPCS: 15273; 15274; Q4158; 15277; 15278

== ENCOUNTER 2017-10-09 09:56 | Outpatient (CLI) | payer MEDICARE ==
[2017-10-09] MEDS ORDERED: XYLOCAINE TOPICAL 4% TP ONE ×2 (10:18→10:26)
[2017-10-09] MEDS ORDERED: AD OINTMENT TP PRN (11:17)
== END 2017-10-09 09:57 | disposition home or self-care (01) ==
LOC: WOUND 09:56
PROVIDERS: ATTEND Nurse Practitioner
DX: I87.311 Chronic venous hypertension (idiopathic) with ulcer of right lower extremity (principal); L97.811 Non-pressure chronic ulcer of other part of right lower leg limited to breakdown of skin; S91.109D Unspecified open wound of unspecified toe(s) without damage to nail, subsequent encounter; M06.9 Rheumatoid arthritis, unspecified; E44.0 Moderate protein-calorie malnutrition; F17.210 Nicotine dependence, cigarettes, uncomplicated; X58.XXXD Exposure to other specified factors, subsequent encounter
CPT/HCPCS: A6250

== ENCOUNTER 2017-10-16 09:57 | Outpatient (CLI) | payer MEDICARE ==
[2017-10-16] MEDS ORDERED: XYLOCAINE TOPICAL 4% TP ONE (10:29)
[2017-10-16] MEDS ORDERED: NACL 0.9% IR ONE (10:29)
[2017-10-16] MEDS ORDERED: SODIUM CHLORIDE FLUSH SYRINGE 10 ML IV ONE ×2 (11:19→14:56)
== END 2017-10-16 09:58 | disposition home or self-care (01) ==
LOC: WOUND 09:57
PROVIDERS: ATTEND Surgery
DX: I87.311 Chronic venous hypertension (idiopathic) with ulcer of right lower extremity (principal); L97.811 Non-pressure chronic ulcer of other part of right lower leg limited to breakdown of skin; S91.109D Unspecified open wound of unspecified toe(s) without damage to nail, subsequent encounter; M06.9 Rheumatoid arthritis, unspecified; E44.0 Moderate protein-calorie malnutrition; F17.210 Nicotine dependence, cigarettes, uncomplicated
CPT/HCPCS: 15271; 15272; Q4158

== ENCOUNTER 2017-10-23 09:52 | Outpatient (CLI) | payer MEDICARE ==
[2017-10-23] MEDS ORDERED: XYLOCAINE TOPICAL 4% TP ONE (10:31)
== END 2017-10-23 09:53 | disposition home or self-care (01) ==
LOC: WOUND 09:52
PROVIDERS: ATTEND Surgery
DX: I87.311 Chronic venous hypertension (idiopathic) with ulcer of right lower extremity (principal); L97.811 Non-pressure chronic ulcer of other part of right lower leg limited to breakdown of skin; S91.109D Unspecified open wound of unspecified toe(s) without damage to nail, subsequent encounter; M06.9 Rheumatoid arthritis, unspecified; M19.90 Unspecified osteoarthritis, unspecified site; F17.210 Nicotine dependence, cigarettes, uncomplicated; X58.XXXD Exposure to other specified factors, subsequent encounter

== ENCOUNTER 2017-10-30 09:57 | Outpatient (CLI) | payer MEDICARE ==
[2017-10-30] MEDS ORDERED: XYLOCAINE TOPICAL 4% TP ONE ×2 (10:07→10:31)
[2017-10-30] MEDS ORDERED: SODIUM CHLORIDE FLUSH SYRINGE 10 ML IV ONE (10:58)
== END 2017-10-30 09:58 | disposition home or self-care (01) ==
LOC: WOUND 09:57
PROVIDERS: ATTEND Surgery
DX: I87.311 Chronic venous hypertension (idiopathic) with ulcer of right lower extremity (principal); L97.811 Non-pressure chronic ulcer of other part of right lower leg limited to breakdown of skin; S91.109D Unspecified open wound of unspecified toe(s) without damage to nail, subsequent encounter; M06.9 Rheumatoid arthritis, unspecified; F17.210 Nicotine dependence, cigarettes, uncomplicated; X58.XXXD Exposure to other specified factors, subsequent encounter
CPT/HCPCS: 11042; 15273; 15274; Q4158; 15277; 15278

== ENCOUNTER 2017-11-06 09:52 | Outpatient (CLI) | payer MEDICARE ==
[2017-11-06] MEDS ORDERED: XYLOCAINE TOPICAL 4% TP ONE ×2 (10:20→14:19)
[2017-11-06] MEDS ORDERED: SODIUM CHLORIDE FLUSH SYRINGE 10 ML IV ONE ×2 (10:58→14:19)
== END 2017-11-06 09:53 | disposition home or self-care (01) ==
LOC: WOUND 09:52
PROVIDERS: ATTEND Surgery
DX: I87.311 Chronic venous hypertension (idiopathic) with ulcer of right lower extremity (principal); L97.811 Non-pressure chronic ulcer of other part of right lower leg limited to breakdown of skin; M06.9 Rheumatoid arthritis, unspecified; F17.210 Nicotine dependence, cigarettes, uncomplicated

== ENCOUNTER 2017-11-13 09:59 | Outpatient (CLI) | payer MEDICARE ==
[2017-11-13] MEDS ORDERED: XYLOCAINE TOPICAL 4% TP ONE ×2 (10:30→10:31)
== END 2017-11-13 10:00 | disposition home or self-care (01) ==
LOC: WOUND 09:59
PROVIDERS: ATTEND Surgery
DX: I87.311 Chronic venous hypertension (idiopathic) with ulcer of right lower extremity (principal); L97.811 Non-pressure chronic ulcer of other part of right lower leg limited to breakdown of skin; E44.0 Moderate protein-calorie malnutrition; M06.9 Rheumatoid arthritis, unspecified; F17.210 Nicotine dependence, cigarettes, uncomplicated

== ENCOUNTER 2017-11-20 10:04 | Outpatient (CLI) | payer MEDICARE ==
[2017-11-20] MEDS ORDERED: XYLOCAINE TOPICAL 4% TP ONE ×3 (10:07→11:00)
== END 2017-11-20 10:05 | disposition home or self-care (01) ==
LOC: WOUND 10:04
PROVIDERS: ATTEND Surgery
DX: I87.311 Chronic venous hypertension (idiopathic) with ulcer of right lower extremity (principal); L97.811 Non-pressure chronic ulcer of other part of right lower leg limited to breakdown of skin; S91.104D Unspecified open wound of right lesser toe(s) without damage to nail, subsequent encounter; E44.0 Moderate protein-calorie malnutrition; M05.59 Rheumatoid polyneuropathy with rheumatoid arthritis of multiple sites; F17.210 Nicotine dependence, cigarettes, uncomplicated; X58.XXXD Exposure to other specified factors, subsequent encounter

== ENCOUNTER 2017-11-27 09:53 | Outpatient (CLI) | payer MEDICARE ==
[2017-11-27] MEDS ORDERED: XYLOCAINE TOPICAL 4% TP ONE ×2 (10:17→10:49)
== END 2017-11-27 09:54 | disposition home or self-care (01) ==
LOC: WOUND 09:53
PROVIDERS: ATTEND Surgery
DX: I87.311 Chronic venous hypertension (idiopathic) with ulcer of right lower extremity (principal); L97.811 Non-pressure chronic ulcer of other part of right lower leg limited to breakdown of skin; S91.104D Unspecified open wound of right lesser toe(s) without damage to nail, subsequent encounter; E44.0 Moderate protein-calorie malnutrition; M05.59 Rheumatoid polyneuropathy with rheumatoid arthritis of multiple sites; F17.210 Nicotine dependence, cigarettes, uncomplicated; X58.XXXD Exposure to other specified factors, subsequent encounter

== ENCOUNTER 2017-12-04 09:56 | Outpatient (CLI) | payer MEDICARE ==
[2017-12-04] MEDS ORDERED: XYLOCAINE TOPICAL 4% TP ONE ×3 (10:00→10:33)
== END 2017-12-04 09:57 | disposition home or self-care (01) ==
LOC: WOUND 09:56
PROVIDERS: ATTEND Surgery
DX: I87.311 Chronic venous hypertension (idiopathic) with ulcer of right lower extremity (principal); L97.811 Non-pressure chronic ulcer of other part of right lower leg limited to breakdown of skin; S91.109D Unspecified open wound of unspecified toe(s) without damage to nail, subsequent encounter; M06.9 Rheumatoid arthritis, unspecified; F17.210 Nicotine dependence, cigarettes, uncomplicated; X58.XXXD Exposure to other specified factors, subsequent encounter

== ENCOUNTER 2017-12-11 09:55 | Outpatient (CLI) | payer MEDICARE ==
[2017-12-11] MEDS ORDERED: XYLOCAINE TOPICAL 4% TP ONE ×5 (10:20→10:54)
== END 2017-12-11 09:56 | disposition home or self-care (01) ==
LOC: WOUND 09:55
PROVIDERS: ATTEND Surgery
DX: I87.311 Chronic venous hypertension (idiopathic) with ulcer of right lower extremity (principal); L97.811 Non-pressure chronic ulcer of other part of right lower leg limited to breakdown of skin; L97.511 Non-pressure chronic ulcer of other part of right foot limited to breakdown of skin; M06.9 Rheumatoid arthritis, unspecified; F17.210 Nicotine dependence, cigarettes, uncomplicated

== ENCOUNTER 2017-12-18 10:04 | Outpatient (CLI) | payer MEDICARE ==
[~2017-12-18 10:04] MED LIST: XYLOCAINE TOPICAL 4% TP ONE
== END 2017-12-18 10:05 | disposition home or self-care (01) ==
LOC: WOUND 10:04
PROVIDERS: ATTEND Surgery
DX: I87.311 Chronic venous hypertension (idiopathic) with ulcer of right lower extremity (principal); L97.811 Non-pressure chronic ulcer of other part of right lower leg limited to breakdown of skin; M06.9 Rheumatoid arthritis, unspecified; F17.210 Nicotine dependence, cigarettes, uncomplicated

== ENCOUNTER 2017-12-25 10:02 | Outpatient (CLI) | payer MEDICARE ==
[2017-12-25] MEDS ORDERED: XYLOCAINE TOPICAL 4% TP ONE ×2 (10:43→10:58)
== END 2017-12-25 10:03 | disposition home or self-care (01) ==
LOC: WOUND 10:02
PROVIDERS: ATTEND Surgery
DX: I87.311 Chronic venous hypertension (idiopathic) with ulcer of right lower extremity (principal); L97.811 Non-pressure chronic ulcer of other part of right lower leg limited to breakdown of skin; S91.104D Unspecified open wound of right lesser toe(s) without damage to nail, subsequent encounter; M06.9 Rheumatoid arthritis, unspecified; F17.210 Nicotine dependence, cigarettes, uncomplicated; X58.XXXD Exposure to other specified factors, subsequent encounter

== ENCOUNTER 2018-01-01 09:55 | Outpatient (CLI) | payer MEDICARE ==
[2018-01-01] MEDS ORDERED: XYLOCAINE TOPICAL 4% TP ONE (10:17)
== END 2018-01-01 09:56 | disposition home or self-care (01) ==
LOC: WOUND 09:55
PROVIDERS: ATTEND Surgery
DX: I87.311 Chronic venous hypertension (idiopathic) with ulcer of right lower extremity (principal); L97.811 Non-pressure chronic ulcer of other part of right lower leg limited to breakdown of skin; M06.9 Rheumatoid arthritis, unspecified; M19.90 Unspecified osteoarthritis, unspecified site; F17.210 Nicotine dependence, cigarettes, uncomplicated

== ENCOUNTER 2018-01-06 10:33 | Outpatient (CLI) | payer MEDICARE ==
[2018-01-06] MEDS ORDERED: XYLOCAINE TOPICAL 4% TP ONE ×2 (11:11)
[2018-01-06] MEDS ORDERED: NACL 0.9% 500 ML IR ONE (11:17)
[2018-01-06] MEDS ORDERED: NACL 0.9% IR ONE (14:15)
== END 2018-01-06 10:34 | disposition home or self-care (01) ==
LOC: WOUND 10:33
PROVIDERS: ATTEND Surgery
DX: I87.311 Chronic venous hypertension (idiopathic) with ulcer of right lower extremity (principal); L97.811 Non-pressure chronic ulcer of other part of right lower leg limited to breakdown of skin; M06.9 Rheumatoid arthritis, unspecified; M19.90 Unspecified osteoarthritis, unspecified site; F17.210 Nicotine dependence, cigarettes, uncomplicated
CPT/HCPCS: 87075; 87076; 87116; 87186

== ENCOUNTER 2018-01-13 10:28 | Outpatient (CLI) | payer MEDICARE ==
[2018-01-13] MEDS ORDERED: XYLOCAINE TOPICAL 4% TP ONE ×2 (10:42→10:52)
[2018-01-13] MEDS ORDERED: AD OINTMENT TP PRN (11:43)
== END 2018-01-13 10:29 | disposition home or self-care (01) ==
LOC: WOUND 10:28
PROVIDERS: ATTEND Surgery
DX: I87.311 Chronic venous hypertension (idiopathic) with ulcer of right lower extremity (principal); L97.811 Non-pressure chronic ulcer of other part of right lower leg limited to breakdown of skin; M06.9 Rheumatoid arthritis, unspecified; M19.90 Unspecified osteoarthritis, unspecified site; F17.210 Nicotine dependence, cigarettes, uncomplicated
CPT/HCPCS: 29580; A6250

== ENCOUNTER 2018-01-17 10:50 | Outpatient (CLI) | payer MEDICARE | END 2018-01-17 10:51 | disposition home or self-care (01) | LOC: WOUND 10:50 | PROVIDERS: ATTEND Surgery | DX: I87.311 Chronic venous hypertension (idiopathic) with ulcer of right lower extremity (principal); L97.811 Non-pressure chronic ulcer of other part of right lower leg limited to breakdown of skin; M06.9 Rheumatoid arthritis, unspecified; M19.90 Unspecified osteoarthritis, unspecified site; E44.0 Moderate protein-calorie malnutrition; F17.210 Nicotine dependence, cigarettes, uncomplicated; Z68.1 Body mass index [BMI] 19.9 or less, adult | CPT/HCPCS: 29581 ==

== ENCOUNTER 2018-01-20 10:18 | Outpatient (CLI) | payer MEDICARE ==
[2018-01-20] MEDS ORDERED: XYLOCAINE TOPICAL 4% TP ONE ×2 (10:36→10:45)
== END 2018-01-20 10:19 | disposition home or self-care (01) ==
LOC: WOUND 10:18
PROVIDERS: ATTEND Surgery
DX: I87.311 Chronic venous hypertension (idiopathic) with ulcer of right lower extremity (principal); L97.811 Non-pressure chronic ulcer of other part of right lower leg limited to breakdown of skin; M06.9 Rheumatoid arthritis, unspecified; M19.90 Unspecified osteoarthritis, unspecified site; E44.0 Moderate protein-calorie malnutrition; F17.210 Nicotine dependence, cigarettes, uncomplicated; Z68.1 Body mass index [BMI] 19.9 or less, adult
CPT/HCPCS: 29580

== ENCOUNTER 2018-01-23 10:33 | Outpatient (CLI) | payer MEDICARE | END 2018-01-23 10:34 | disposition home or self-care (01) | LOC: WOUND 10:33 | PROVIDERS: ATTEND Surgery | DX: I87.311 Chronic venous hypertension (idiopathic) with ulcer of right lower extremity (principal); L97.811 Non-pressure chronic ulcer of other part of right lower leg limited to breakdown of skin; M06.9 Rheumatoid arthritis, unspecified; M19.90 Unspecified osteoarthritis, unspecified site; E44.0 Moderate protein-calorie malnutrition; F17.210 Nicotine dependence, cigarettes, uncomplicated; Z68.1 Body mass index [BMI] 19.9 or less, adult | CPT/HCPCS: 29580 ==

== ENCOUNTER 2018-01-27 10:00 | Outpatient (CLI) | payer MEDICARE ==
[2018-01-27] MEDS ORDERED: XYLOCAINE TOPICAL 4% TP ONE ×3 (10:12→10:29)
== END 2018-01-27 10:01 | disposition home or self-care (01) ==
LOC: WOUND 10:00
PROVIDERS: ATTEND Surgery
DX: I87.311 Chronic venous hypertension (idiopathic) with ulcer of right lower extremity (principal); L97.811 Non-pressure chronic ulcer of other part of right lower leg limited to breakdown of skin; M06.9 Rheumatoid arthritis, unspecified; M19.90 Unspecified osteoarthritis, unspecified site; E44.0 Moderate protein-calorie malnutrition; F17.210 Nicotine dependence, cigarettes, uncomplicated; Z68.1 Body mass index [BMI] 19.9 or less, adult

== ENCOUNTER 2018-01-30 11:11 | Outpatient (CLI) | payer MEDICARE | END 2018-01-30 11:12 | disposition home or self-care (01) | LOC: WOUND 11:11 | PROVIDERS: ATTEND Surgery | DX: I87.311 Chronic venous hypertension (idiopathic) with ulcer of right lower extremity (principal); L97.811 Non-pressure chronic ulcer of other part of right lower leg limited to breakdown of skin; M06.9 Rheumatoid arthritis, unspecified; M19.90 Unspecified osteoarthritis, unspecified site; E44.0 Moderate protein-calorie malnutrition; F17.210 Nicotine dependence, cigarettes, uncomplicated; Z68.1 Body mass index [BMI] 19.9 or less, adult | CPT/HCPCS: 99214; G0463 ==

== ENCOUNTER 2018-02-03 10:02 | Outpatient (CLI) | payer MEDICARE ==
[2018-02-03] MEDS ORDERED: XYLOCAINE TOPICAL 4% TP ONE (10:20)
[2018-02-03] MEDS ORDERED: NACL 0.9% 500 ML IR ONE (10:26)
[2018-02-03] MEDS ORDERED: NACL 0.9% IR ONE (17:01)
== END 2018-02-03 10:03 | disposition home or self-care (01) ==
LOC: WOUND 10:02
PROVIDERS: ATTEND Surgery
DX: I87.311 Chronic venous hypertension (idiopathic) with ulcer of right lower extremity (principal); L97.811 Non-pressure chronic ulcer of other part of right lower leg limited to breakdown of skin; M06.9 Rheumatoid arthritis, unspecified; M19.90 Unspecified osteoarthritis, unspecified site; E44.0 Moderate protein-calorie malnutrition; F17.210 Nicotine dependence, cigarettes, uncomplicated; Z68.1 Body mass index [BMI] 19.9 or less, adult

== ENCOUNTER 2018-02-06 09:04 | Outpatient (CLI) | payer MEDICARE | END 2018-02-06 09:05 | disposition home or self-care (01) | LOC: WOUND 09:04 | PROVIDERS: ATTEND Surgery | DX: I87.311 Chronic venous hypertension (idiopathic) with ulcer of right lower extremity (principal); L97.811 Non-pressure chronic ulcer of other part of right lower leg limited to breakdown of skin; M06.9 Rheumatoid arthritis, unspecified; M19.90 Unspecified osteoarthritis, unspecified site; E44.0 Moderate protein-calorie malnutrition; F17.210 Nicotine dependence, cigarettes, uncomplicated; Z68.1 Body mass index [BMI] 19.9 or less, adult | CPT/HCPCS: 99214; G0463 ==

== ENCOUNTER 2018-02-10 10:02 | Outpatient (CLI) | payer MEDICARE ==
[2018-02-10] MEDS ORDERED: XYLOCAINE TOPICAL 4% TP ONE ×2 (10:36→10:50)
== END 2018-02-10 10:03 | disposition home or self-care (01) ==
LOC: WOUND 10:02
PROVIDERS: ATTEND Surgery
DX: I87.311 Chronic venous hypertension (idiopathic) with ulcer of right lower extremity (principal); L97.811 Non-pressure chronic ulcer of other part of right lower leg limited to breakdown of skin; M06.9 Rheumatoid arthritis, unspecified; E44.0 Moderate protein-calorie malnutrition; F17.210 Nicotine dependence, cigarettes, uncomplicated
CPT/HCPCS: 29581

== ENCOUNTER 2018-02-17 10:00 | Outpatient (CLI) | payer MEDICARE ==
[2018-02-17] MEDS ORDERED: XYLOCAINE TOPICAL 4% TP ONE ×2 (10:30→10:48)
== END 2018-02-17 10:01 | disposition home or self-care (01) ==
LOC: WOUND 10:00
PROVIDERS: ATTEND Surgery
DX: I87.311 Chronic venous hypertension (idiopathic) with ulcer of right lower extremity (principal); L97.812 Non-pressure chronic ulcer of other part of right lower leg with fat layer exposed; M06.9 Rheumatoid arthritis, unspecified; E44.0 Moderate protein-calorie malnutrition; F17.210 Nicotine dependence, cigarettes, uncomplicated
CPT/HCPCS: 29581

== ENCOUNTER 2018-02-20 10:56 | Outpatient (CLI) | payer MEDICARE ==
[2018-02-20] MEDS ORDERED: AD OINTMENT TP PRN (11:07)
[2018-02-20] MEDS ORDERED: XYLOCAINE TOPICAL 4% TP ONE (11:07)
== END 2018-02-20 10:57 | disposition home or self-care (01) ==
LOC: WOUND 10:56
PROVIDERS: ATTEND Surgery
DX: I87.311 Chronic venous hypertension (idiopathic) with ulcer of right lower extremity (principal); L97.812 Non-pressure chronic ulcer of other part of right lower leg with fat layer exposed; M06.9 Rheumatoid arthritis, unspecified; E44.0 Moderate protein-calorie malnutrition; F17.210 Nicotine dependence, cigarettes, uncomplicated
CPT/HCPCS: 29581; A6250

== ENCOUNTER 2018-02-24 09:59 | Outpatient (CLI) | payer MEDICARE ==
[2018-02-24] MEDS ORDERED: XYLOCAINE TOPICAL 4% TP ONE ×3 (10:18→10:29)
[2018-02-24] MEDS ORDERED: AD OINTMENT TP ONE (11:05)
[2018-02-25] MEDS ORDERED: AD OINTMENT TP SCH (10:00)
== END 2018-02-24 10:00 | disposition home or self-care (01) ==
LOC: WOUND 09:59
PROVIDERS: ATTEND Surgery
DX: I87.311 Chronic venous hypertension (idiopathic) with ulcer of right lower extremity (principal); L97.812 Non-pressure chronic ulcer of other part of right lower leg with fat layer exposed; M06.9 Rheumatoid arthritis, unspecified; E44.0 Moderate protein-calorie malnutrition; F17.210 Nicotine dependence, cigarettes, uncomplicated
CPT/HCPCS: A6250

== ENCOUNTER 2018-02-27 12:57 | Outpatient (CLI) | payer MEDICARE ==
[2018-02-27] MEDS ORDERED: DAKIN'S FULL STRENGTH ONE (13:18)
[2018-02-27] MEDS ORDERED: NACL 0.9% IR ONE (16:07)
== END 2018-02-27 12:58 | disposition home or self-care (01) ==
LOC: WOUND 12:57
PROVIDERS: ATTEND Surgery
DX: I87.311 Chronic venous hypertension (idiopathic) with ulcer of right lower extremity (principal); L97.812 Non-pressure chronic ulcer of other part of right lower leg with fat layer exposed; M06.9 Rheumatoid arthritis, unspecified; E44.0 Moderate protein-calorie malnutrition; F17.210 Nicotine dependence, cigarettes, uncomplicated
CPT/HCPCS: 99214; G0463

== ENCOUNTER 2018-03-03 09:57 | Outpatient (CLI) | payer MEDICARE ==
[2018-03-03] MEDS ORDERED: XYLOCAINE TOPICAL 4% TP ONE ×3 (10:52→11:45)
== END 2018-03-03 09:58 | disposition home or self-care (01) ==
LOC: WOUND 09:57
PROVIDERS: ATTEND Surgery
DX: I87.311 Chronic venous hypertension (idiopathic) with ulcer of right lower extremity (principal); L97.812 Non-pressure chronic ulcer of other part of right lower leg with fat layer exposed; M06.9 Rheumatoid arthritis, unspecified; E44.0 Moderate protein-calorie malnutrition; F17.210 Nicotine dependence, cigarettes, uncomplicated

== ENCOUNTER 2018-03-11 09:56 | Outpatient (CLI) | payer MEDICARE ==
[2018-03-11] MEDS ORDERED: XYLOCAINE TOPICAL 4% TP ONE (10:07)
== END 2018-03-11 09:57 | disposition home or self-care (01) ==
LOC: WOUND 09:56
PROVIDERS: ATTEND Surgery
DX: I87.311 Chronic venous hypertension (idiopathic) with ulcer of right lower extremity (principal); L97.812 Non-pressure chronic ulcer of other part of right lower leg with fat layer exposed; M06.9 Rheumatoid arthritis, unspecified; E44.0 Moderate protein-calorie malnutrition; F17.210 Nicotine dependence, cigarettes, uncomplicated

== ENCOUNTER 2018-03-20 11:52 | Outpatient (CLI) | payer MEDICARE | END 2018-03-20 11:53 | disposition home or self-care (01) | LOC: WOUND 11:52 | PROVIDERS: ATTEND Surgery | DX: I87.311 Chronic venous hypertension (idiopathic) with ulcer of right lower extremity (principal); L97.812 Non-pressure chronic ulcer of other part of right lower leg with fat layer exposed; M06.9 Rheumatoid arthritis, unspecified; E44.0 Moderate protein-calorie malnutrition; F17.210 Nicotine dependence, cigarettes, uncomplicated | CPT/HCPCS: 99213; G0463 ==

== ENCOUNTER 2018-03-24 09:54 | Outpatient (CLI) | payer MEDICARE ==
[2018-03-24] MEDS ORDERED: SODIUM CHLORIDE FLUSH SYRINGE 10 ML IV ONE ×2 (10:32→10:57)
[2018-03-24] MEDS ORDERED: XYLOCAINE TOPICAL 4% TP ONE ×2 (10:32→10:57)
== END 2018-03-24 09:55 | disposition home or self-care (01) ==
LOC: WOUND 09:54
PROVIDERS: ATTEND Surgery
DX: I87.311 Chronic venous hypertension (idiopathic) with ulcer of right lower extremity (principal); L97.812 Non-pressure chronic ulcer of other part of right lower leg with fat layer exposed; M06.9 Rheumatoid arthritis, unspecified; E44.0 Moderate protein-calorie malnutrition; F17.210 Nicotine dependence, cigarettes, uncomplicated

== ENCOUNTER 2018-03-27 12:59 | Outpatient (CLI) | payer MEDICARE | END 2018-03-27 13:00 | disposition home or self-care (01) | LOC: WOUND 12:59 | PROVIDERS: ATTEND Surgery | DX: I87.311 Chronic venous hypertension (idiopathic) with ulcer of right lower extremity (principal); L97.812 Non-pressure chronic ulcer of other part of right lower leg with fat layer exposed; M06.9 Rheumatoid arthritis, unspecified; E44.0 Moderate protein-calorie malnutrition; F17.210 Nicotine dependence, cigarettes, uncomplicated | CPT/HCPCS: 99214; G0463 ==

== ENCOUNTER 2018-03-31 10:08 | Outpatient (CLI) | payer MEDICARE ==
[2018-03-31] MEDS ORDERED: XYLOCAINE TOPICAL 4% TP ONE (10:37)
[2018-03-31] MEDS ORDERED: AD OINTMENT TP ONE (10:42)
[2018-04-01] MEDS ORDERED: AD OINTMENT TP SCH (10:00)
== END 2018-03-31 10:09 | disposition home or self-care (01) ==
LOC: WOUND 10:08
PROVIDERS: ATTEND Surgery
DX: I87.311 Chronic venous hypertension (idiopathic) with ulcer of right lower extremity (principal); I70.235 Atherosclerosis of native arteries of right leg with ulceration of other part of foot; L97.812 Non-pressure chronic ulcer of other part of right lower leg with fat layer exposed; M06.9 Rheumatoid arthritis, unspecified; E44.0 Moderate protein-calorie malnutrition; F17.210 Nicotine dependence, cigarettes, uncomplicated
CPT/HCPCS: A6250

== ENCOUNTER 2018-04-03 12:08 | Outpatient (CLI) | payer MEDICARE | END 2018-04-03 12:09 | disposition home or self-care (01) | LOC: WOUND 12:08 | PROVIDERS: ATTEND Surgery | DX: I87.311 Chronic venous hypertension (idiopathic) with ulcer of right lower extremity (principal); I70.235 Atherosclerosis of native arteries of right leg with ulceration of other part of foot; L97.812 Non-pressure chronic ulcer of other part of right lower leg with fat layer exposed; M06.9 Rheumatoid arthritis, unspecified; E44.0 Moderate protein-calorie malnutrition; F17.210 Nicotine dependence, cigarettes, uncomplicated | CPT/HCPCS: 99213; G0463 ==

== ENCOUNTER 2018-04-07 09:56 | Outpatient (CLI) | payer MEDICARE ==
[2018-04-07] MEDS ORDERED: XYLOCAINE TOPICAL 4% TP ONE ×2 (10:20→10:50)
[2018-04-07] MEDS ORDERED: SODIUM CHLORIDE FLUSH SYRINGE 10 ML IV ONE ×2 (10:21→10:50)
== END 2018-04-07 09:57 | disposition home or self-care (01) ==
LOC: WOUND 09:56
PROVIDERS: ATTEND Surgery
DX: I87.311 Chronic venous hypertension (idiopathic) with ulcer of right lower extremity (principal); L97.812 Non-pressure chronic ulcer of other part of right lower leg with fat layer exposed; I70.235 Atherosclerosis of native arteries of right leg with ulceration of other part of foot; L97.511 Non-pressure chronic ulcer of other part of right foot limited to breakdown of skin; M06.9 Rheumatoid arthritis, unspecified; E44.0 Moderate protein-calorie malnutrition; F17.210 Nicotine dependence, cigarettes, uncomplicated

== ENCOUNTER 2018-04-10 12:34 | Outpatient (CLI) | payer MEDICARE | END 2018-04-10 12:35 | disposition home or self-care (01) | LOC: WOUND 12:34 | PROVIDERS: ATTEND Surgery | DX: I87.311 Chronic venous hypertension (idiopathic) with ulcer of right lower extremity (principal); I70.235 Atherosclerosis of native arteries of right leg with ulceration of other part of foot; L97.511 Non-pressure chronic ulcer of other part of right foot limited to breakdown of skin; M06.9 Rheumatoid arthritis, unspecified; E44.0 Moderate protein-calorie malnutrition; F17.210 Nicotine dependence, cigarettes, uncomplicated | CPT/HCPCS: 99214; G0463 ==

== ENCOUNTER 2018-04-14 09:53 | Outpatient (CLI) | payer MEDICARE ==
[2018-04-14] MEDS ORDERED: XYLOCAINE TOPICAL 4% TP ONE ×2 (10:03→10:41)
== END 2018-04-14 09:54 | disposition home or self-care (01) ==
LOC: WOUND 09:53
PROVIDERS: ATTEND Surgery
DX: I87.313 Chronic venous hypertension (idiopathic) with ulcer of bilateral lower extremity (principal); L97.812 Non-pressure chronic ulcer of other part of right lower leg with fat layer exposed; I70.235 Atherosclerosis of native arteries of right leg with ulceration of other part of foot; L97.522 Non-pressure chronic ulcer of other part of left foot with fat layer exposed; M06.9 Rheumatoid arthritis, unspecified; E44.0 Moderate protein-calorie malnutrition; F17.210 Nicotine dependence, cigarettes, uncomplicated

== ENCOUNTER 2018-04-24 11:54 | Outpatient (CLI) | payer MEDICARE | END 2018-04-24 11:55 | disposition home or self-care (01) | LOC: WOUND 11:54 | PROVIDERS: ATTEND Surgery | DX: I87.313 Chronic venous hypertension (idiopathic) with ulcer of bilateral lower extremity (principal); I70.235 Atherosclerosis of native arteries of right leg with ulceration of other part of foot; L97.812 Non-pressure chronic ulcer of other part of right lower leg with fat layer exposed; L97.522 Non-pressure chronic ulcer of other part of left foot with fat layer exposed; M06.9 Rheumatoid arthritis, unspecified; E44.0 Moderate protein-calorie malnutrition; F17.210 Nicotine dependence, cigarettes, uncomplicated | CPT/HCPCS: 99214; G0463 ==

== ENCOUNTER 2018-04-28 09:46 | Outpatient (CLI) | payer MEDICARE ==
[2018-04-28] MEDS ORDERED: XYLOCAINE TOPICAL 4% TP ONE ×2 (09:59→16:05)
[2018-04-28] MEDS ORDERED: SODIUM CHLORIDE FLUSH SYRINGE 10 ML IV ONE ×2 (10:08→16:05)
== END 2018-04-28 09:47 | disposition home or self-care (01) ==
LOC: WOUND 09:46
PROVIDERS: ATTEND Surgery
DX: I87.313 Chronic venous hypertension (idiopathic) with ulcer of bilateral lower extremity (principal); I70.235 Atherosclerosis of native arteries of right leg with ulceration of other part of foot; L97.812 Non-pressure chronic ulcer of other part of right lower leg with fat layer exposed; L97.529 Non-pressure chronic ulcer of other part of left foot with unspecified severity; M06.9 Rheumatoid arthritis, unspecified; E44.0 Moderate protein-calorie malnutrition; F17.210 Nicotine dependence, cigarettes, uncomplicated
CPT/HCPCS: 29581

== ENCOUNTER 2018-06-23 09:57 | Outpatient (CLI) | payer MEDICARE ==
[2018-06-23] MEDS ORDERED: XYLOCAINE TOPICAL 4% TP ONE (10:30)
== END 2018-06-23 09:58 | disposition home or self-care (01) ==
LOC: WOUND 09:57
PROVIDERS: ATTEND Surgery
DX: I87.311 Chronic venous hypertension (idiopathic) with ulcer of right lower extremity (principal); L97.812 Non-pressure chronic ulcer of other part of right lower leg with fat layer exposed; I70.235 Atherosclerosis of native arteries of right leg with ulceration of other part of foot; L97.512 Non-pressure chronic ulcer of other part of right foot with fat layer exposed; M05.59 Rheumatoid polyneuropathy with rheumatoid arthritis of multiple sites; E44.0 Moderate protein-calorie malnutrition; F17.210 Nicotine dependence, cigarettes, uncomplicated
CPT/HCPCS: 11042; 11045; 11720; G0463; 99214

== ENCOUNTER 2018-07-07 10:04 | Outpatient (CLI) | payer MEDICARE ==
[2018-07-07] MEDS ORDERED: XYLOCAINE TOPICAL 4% TP ONE (10:29)
== END 2018-07-07 10:05 | disposition home or self-care (01) ==
LOC: WOUND 10:04
PROVIDERS: ATTEND Surgery
DX: I87.311 Chronic venous hypertension (idiopathic) with ulcer of right lower extremity (principal); L97.812 Non-pressure chronic ulcer of other part of right lower leg with fat layer exposed; I70.235 Atherosclerosis of native arteries of right leg with ulceration of other part of foot; L97.512 Non-pressure chronic ulcer of other part of right foot with fat layer exposed; I87.2 Venous insufficiency (chronic) (peripheral); M05.59 Rheumatoid polyneuropathy with rheumatoid arthritis of multiple sites; M19.90 Unspecified osteoarthritis, unspecified site; E44.0 Moderate protein-calorie malnutrition; F17.210 Nicotine dependence, cigarettes, uncomplicated

== ENCOUNTER 2018-07-17 12:00 | Outpatient (CLI) | payer MEDICARE | END 2018-07-17 12:01 | disposition home or self-care (01) | LOC: WOUND 12:00 | CPT/HCPCS: 99214; G0463 ==

== ENCOUNTER 2018-07-21 10:00 | Outpatient (CLI) | payer MEDICARE ==
[2018-07-21] MEDS ORDERED: XYLOCAINE TOPICAL 4% TP ONE (10:31)
== END 2018-07-21 10:01 | disposition home or self-care (01) ==
LOC: WOUND 10:00
PROVIDERS: ATTEND Surgery
DX: I87.311 Chronic venous hypertension (idiopathic) with ulcer of right lower extremity (principal); L97.812 Non-pressure chronic ulcer of other part of right lower leg with fat layer exposed; I70.235 Atherosclerosis of native arteries of right leg with ulceration of other part of foot; L97.512 Non-pressure chronic ulcer of other part of right foot with fat layer exposed; M05.59 Rheumatoid polyneuropathy with rheumatoid arthritis of multiple sites; M19.90 Unspecified osteoarthritis, unspecified site; E44.0 Moderate protein-calorie malnutrition; F17.210 Nicotine dependence, cigarettes, uncomplicated

== ENCOUNTER 2018-07-24 11:59 | Outpatient (CLI) | payer MEDICARE | END 2018-07-24 12:00 | disposition home or self-care (01) | LOC: WOUND 11:59 | CPT/HCPCS: 99215; G0463 ==

== ENCOUNTER 2018-07-28 10:00 | Outpatient (CLI) | payer MEDICARE ==
[2018-07-28] MEDS ORDERED: XYLOCAINE TOPICAL 4% TP ONE (10:21)
== END 2018-07-28 10:01 | disposition home or self-care (01) ==
LOC: WOUND 10:00
PROVIDERS: ATTEND Surgery
DX: I87.311 Chronic venous hypertension (idiopathic) with ulcer of right lower extremity (principal); L97.812 Non-pressure chronic ulcer of other part of right lower leg with fat layer exposed; L97.522 Non-pressure chronic ulcer of other part of left foot with fat layer exposed; I70.235 Atherosclerosis of native arteries of right leg with ulceration of other part of foot; L97.512 Non-pressure chronic ulcer of other part of right foot with fat layer exposed; I87.2 Venous insufficiency (chronic) (peripheral); M05.59 Rheumatoid polyneuropathy with rheumatoid arthritis of multiple sites; E44.0 Moderate protein-calorie malnutrition; M06.9 Rheumatoid arthritis, unspecified; M19.90 Unspecified osteoarthritis, unspecified site; F17.210 Nicotine dependence, cigarettes, uncomplicated

== ENCOUNTER 2018-07-31 11:55 | Outpatient (CLI) | payer MEDICARE ==
[2018-07-31] MEDS ORDERED: AD OINTMENT TP SCH (12:30)
== END 2018-07-31 11:56 | disposition home or self-care (01) ==
LOC: WOUND 11:55
PROVIDERS: ATTEND Surgery
DX: I70.235 Atherosclerosis of native arteries of right leg with ulceration of other part of foot (principal); L97.511 Non-pressure chronic ulcer of other part of right foot limited to breakdown of skin; I87.311 Chronic venous hypertension (idiopathic) with ulcer of right lower extremity; L97.811 Non-pressure chronic ulcer of other part of right lower leg limited to breakdown of skin; L97.521 Non-pressure chronic ulcer of other part of left foot limited to breakdown of skin; M05.59 Rheumatoid polyneuropathy with rheumatoid arthritis of multiple sites; E44.0 Moderate protein-calorie malnutrition; M19.90 Unspecified osteoarthritis, unspecified site; I87.2 Venous insufficiency (chronic) (peripheral); F17.290 Nicotine dependence, other tobacco product, uncomplicated
CPT/HCPCS: 99214; A6250; G0463

== ENCOUNTER 2018-08-04 09:55 | Outpatient (CLI) | payer MEDICARE | END 2018-08-04 09:56 | disposition home or self-care (01) | LOC: WOUND 09:55 ==

== ENCOUNTER 2018-08-07 12:00 | Outpatient (CLI) | payer MEDICARE | END 2018-08-07 12:01 | disposition home or self-care (01) | LOC: WOUND 12:00 | CPT/HCPCS: 99213; G0463 ==

== ENCOUNTER 2018-08-11 10:04 | Outpatient (CLI) | payer MEDICARE ==
[2018-08-11] MEDS ORDERED: XYLOCAINE TOPICAL 4% TP ONE (10:10)
[2018-08-11] MEDS ORDERED: SILVER NITRATE TP ONE (10:11)
== END 2018-08-11 10:05 | disposition home or self-care (01) ==
LOC: WOUND 10:04
PROVIDERS: ATTEND Surgery
DX: I87.313 Chronic venous hypertension (idiopathic) with ulcer of bilateral lower extremity (principal); L97.812 Non-pressure chronic ulcer of other part of right lower leg with fat layer exposed; L97.521 Non-pressure chronic ulcer of other part of left foot limited to breakdown of skin; I70.235 Atherosclerosis of native arteries of right leg with ulceration of other part of foot; L97.512 Non-pressure chronic ulcer of other part of right foot with fat layer exposed; I87.2 Venous insufficiency (chronic) (peripheral); M05.59 Rheumatoid polyneuropathy with rheumatoid arthritis of multiple sites; M19.90 Unspecified osteoarthritis, unspecified site; E44.0 Moderate protein-calorie malnutrition; F17.290 Nicotine dependence, other tobacco product, uncomplicated

== ENCOUNTER 2018-08-14 11:50 | Outpatient (CLI) | payer MEDICARE | END 2018-08-14 11:51 | disposition home or self-care (01) | LOC: WOUND 11:50 | CPT/HCPCS: 99214; G0463 ==

== ENCOUNTER 2018-08-18 09:56 | Outpatient (CLI) | payer MEDICARE ==
[2018-08-18] MEDS ORDERED: XYLOCAINE TOPICAL 4% TP ONE (10:45)
[2018-08-19] MEDS ORDERED: AD OINTMENT TP SCH (10:40)
== END 2018-08-18 09:57 | disposition home or self-care (01) ==
LOC: WOUND 09:56
PROVIDERS: ATTEND Surgery
DX: I87.313 Chronic venous hypertension (idiopathic) with ulcer of bilateral lower extremity (principal); L97.812 Non-pressure chronic ulcer of other part of right lower leg with fat layer exposed; L97.521 Non-pressure chronic ulcer of other part of left foot limited to breakdown of skin; I70.235 Atherosclerosis of native arteries of right leg with ulceration of other part of foot; L97.512 Non-pressure chronic ulcer of other part of right foot with fat layer exposed; M05.59 Rheumatoid polyneuropathy with rheumatoid arthritis of multiple sites; E44.0 Moderate protein-calorie malnutrition; M19.90 Unspecified osteoarthritis, unspecified site; I87.2 Venous insufficiency (chronic) (peripheral); F17.290 Nicotine dependence, other tobacco product, uncomplicated

== ENCOUNTER 2018-08-25 10:14 | Outpatient (CLI) | payer MEDICARE ==
[2018-08-25] MEDS ORDERED: XYLOCAINE TOPICAL 4% TP ONE (10:15)
[2018-08-25] MEDS ORDERED: SILVER NITRATE TP ONE (10:53)
== END 2018-08-25 10:15 | disposition home or self-care (01) ==
LOC: WOUND 10:14
PROVIDERS: ATTEND Surgery
DX: I87.313 Chronic venous hypertension (idiopathic) with ulcer of bilateral lower extremity (principal); L97.812 Non-pressure chronic ulcer of other part of right lower leg with fat layer exposed; L97.522 Non-pressure chronic ulcer of other part of left foot with fat layer exposed; I70.235 Atherosclerosis of native arteries of right leg with ulceration of other part of foot; L97.512 Non-pressure chronic ulcer of other part of right foot with fat layer exposed; I87.2 Venous insufficiency (chronic) (peripheral); E44.0 Moderate protein-calorie malnutrition; M05.59 Rheumatoid polyneuropathy with rheumatoid arthritis of multiple sites; M19.90 Unspecified osteoarthritis, unspecified site; F17.290 Nicotine dependence, other tobacco product, uncomplicated

== ENCOUNTER 2018-08-28 11:52 | Outpatient (CLI) | payer MEDICARE | END 2018-08-28 11:53 | disposition home or self-care (01) | LOC: WOUND 11:52 | CPT/HCPCS: 99214; G0463 ==

== ENCOUNTER 2018-09-01 09:51 | Outpatient (CLI) | payer MEDICARE ==
[2018-09-01] MEDS ORDERED: XYLOCAINE TOPICAL 4% TP ONE (10:20)
== END 2018-09-01 09:52 | disposition home or self-care (01) ==
LOC: WOUND 09:51
PROVIDERS: ATTEND Surgery
DX: I87.313 Chronic venous hypertension (idiopathic) with ulcer of bilateral lower extremity (principal); L97.512 Non-pressure chronic ulcer of other part of right foot with fat layer exposed; L97.812 Non-pressure chronic ulcer of other part of right lower leg with fat layer exposed; L97.521 Non-pressure chronic ulcer of other part of left foot limited to breakdown of skin; M05.59 Rheumatoid polyneuropathy with rheumatoid arthritis of multiple sites; E44.0 Moderate protein-calorie malnutrition; I87.2 Venous insufficiency (chronic) (peripheral); M19.90 Unspecified osteoarthritis, unspecified site; F17.290 Nicotine dependence, other tobacco product, uncomplicated

== ENCOUNTER 2018-09-04 11:58 | Outpatient (CLI) | payer MEDICARE | END 2018-09-04 11:59 | disposition home or self-care (01) | LOC: WOUND 11:58 | CPT/HCPCS: 99214; G0463 ==

== ENCOUNTER 2018-09-08 09:58 | Outpatient (CLI) | payer MEDICARE | END 2018-09-08 09:59 | disposition home or self-care (01) | LOC: WOUND 09:58 ==

== ENCOUNTER 2018-09-11 11:53 | Outpatient (CLI) | payer MEDICARE | END 2018-09-11 11:54 | disposition home or self-care (01) | LOC: WOUND 11:53 | CPT/HCPCS: 99215; G0463 ==

== ENCOUNTER 2018-09-15 09:46 | Outpatient (CLI) | payer MEDICARE ==
[2018-09-15] MEDS ORDERED: XYLOCAINE TOPICAL 4% TP ONE (10:29)
== END 2018-09-15 09:47 | disposition home or self-care (01) ==
LOC: WOUND 09:46
PROVIDERS: ATTEND Surgery
DX: I87.313 Chronic venous hypertension (idiopathic) with ulcer of bilateral lower extremity (principal); L97.812 Non-pressure chronic ulcer of other part of right lower leg with fat layer exposed; L97.522 Non-pressure chronic ulcer of other part of left foot with fat layer exposed; L97.512 Non-pressure chronic ulcer of other part of right foot with fat layer exposed; I70.235 Atherosclerosis of native arteries of right leg with ulceration of other part of foot; I87.2 Venous insufficiency (chronic) (peripheral); E44.0 Moderate protein-calorie malnutrition; M19.90 Unspecified osteoarthritis, unspecified site; M05.59 Rheumatoid polyneuropathy with rheumatoid arthritis of multiple sites; F17.210 Nicotine dependence, cigarettes, uncomplicated

== ENCOUNTER 2018-09-22 10:12 | Outpatient (CLI) | payer MEDICARE ==
[2018-09-22] MEDS ORDERED: XYLOCAINE TOPICAL 4% TP ONE (11:00)
[2018-09-22] MEDS ORDERED: AD OINTMENT TP PRN (11:00)
== END 2018-09-22 10:13 | disposition home or self-care (01) ==
LOC: WOUND 10:12
PROVIDERS: ATTEND Surgery
DX: I87.311 Chronic venous hypertension (idiopathic) with ulcer of right lower extremity (principal); L97.812 Non-pressure chronic ulcer of other part of right lower leg with fat layer exposed; I70.235 Atherosclerosis of native arteries of right leg with ulceration of other part of foot; L97.512 Non-pressure chronic ulcer of other part of right foot with fat layer exposed; M05.59 Rheumatoid polyneuropathy with rheumatoid arthritis of multiple sites; E44.0 Moderate protein-calorie malnutrition; I87.2 Venous insufficiency (chronic) (peripheral); M19.90 Unspecified osteoarthritis, unspecified site; F17.290 Nicotine dependence, other tobacco product, uncomplicated
CPT/HCPCS: A6250

== ENCOUNTER 2018-09-25 11:54 | Outpatient (CLI) | payer MEDICARE | END 2018-09-25 11:55 | disposition home or self-care (01) | LOC: WOUND 11:54 | CPT/HCPCS: 99214; G0463 ==

== ENCOUNTER 2018-10-02 11:55 | Outpatient (CLI) | payer MEDICARE | END 2018-10-02 11:56 | disposition home or self-care (01) | LOC: WOUND 11:55 | PROVIDERS: ATTEND Surgery | DX: I87.311 Chronic venous hypertension (idiopathic) with ulcer of right lower extremity (principal); L97.811 Non-pressure chronic ulcer of other part of right lower leg limited to breakdown of skin; I70.235 Atherosclerosis of native arteries of right leg with ulceration of other part of foot; L97.511 Non-pressure chronic ulcer of other part of right foot limited to breakdown of skin; I87.2 Venous insufficiency (chronic) (peripheral); M05.59 Rheumatoid polyneuropathy with rheumatoid arthritis of multiple sites; E44.0 Moderate protein-calorie malnutrition; M19.90 Unspecified osteoarthritis, unspecified site; F17.210 Nicotine dependence, cigarettes, uncomplicated | CPT/HCPCS: 99214; G0463 ==

== ENCOUNTER 2018-10-06 10:10 | Outpatient (CLI) | payer MEDICARE ==
[2018-10-06] MEDS ORDERED: XYLOCAINE TOPICAL 4% TP ONE (10:50)
[2018-10-07] MEDS ORDERED: AD OINTMENT TP SCH (10:00)
== END 2018-10-06 10:11 | disposition home or self-care (01) ==
LOC: WOUND 10:10
PROVIDERS: ATTEND Surgery
DX: I87.311 Chronic venous hypertension (idiopathic) with ulcer of right lower extremity (principal); L97.812 Non-pressure chronic ulcer of other part of right lower leg with fat layer exposed; I70.235 Atherosclerosis of native arteries of right leg with ulceration of other part of foot; L97.512 Non-pressure chronic ulcer of other part of right foot with fat layer exposed; M05.59 Rheumatoid polyneuropathy with rheumatoid arthritis of multiple sites; E44.0 Moderate protein-calorie malnutrition; I87.2 Venous insufficiency (chronic) (peripheral); M19.90 Unspecified osteoarthritis, unspecified site; F17.290 Nicotine dependence, other tobacco product, uncomplicated

== ENCOUNTER 2018-10-13 10:00 | Outpatient (CLI) | payer MEDICARE ==
[2018-10-13] MEDS ORDERED: XYLOCAINE TOPICAL 4% TP ONE (10:12)
[2018-10-14] MEDS ORDERED: AD OINTMENT TP SCH (10:00)
== END 2018-10-13 10:01 | disposition home or self-care (01) ==
LOC: WOUND 10:00
PROVIDERS: ATTEND Surgery
DX: I87.311 Chronic venous hypertension (idiopathic) with ulcer of right lower extremity (principal); L97.812 Non-pressure chronic ulcer of other part of right lower leg with fat layer exposed; I70.235 Atherosclerosis of native arteries of right leg with ulceration of other part of foot; L97.512 Non-pressure chronic ulcer of other part of right foot with fat layer exposed; M05.59 Rheumatoid polyneuropathy with rheumatoid arthritis of multiple sites; E44.0 Moderate protein-calorie malnutrition; I87.2 Venous insufficiency (chronic) (peripheral)

== ENCOUNTER 2018-10-16 11:59 | Outpatient (CLI) | payer MEDICARE | END 2018-10-16 12:00 | disposition home or self-care (01) | LOC: WOUND 11:59 | PROVIDERS: ATTEND Surgery | DX: I87.311 Chronic venous hypertension (idiopathic) with ulcer of right lower extremity (principal); L97.811 Non-pressure chronic ulcer of other part of right lower leg limited to breakdown of skin; I70.235 Atherosclerosis of native arteries of right leg with ulceration of other part of foot; L97.511 Non-pressure chronic ulcer of other part of right foot limited to breakdown of skin; S90.415D Abrasion, left lesser toe(s), subsequent encounter; E44.0 Moderate protein-calorie malnutrition; M05.59 Rheumatoid polyneuropathy with rheumatoid arthritis of multiple sites; M19.90 Unspecified osteoarthritis, unspecified site; I87.2 Venous insufficiency (chronic) (peripheral); F17.210 Nicotine dependence, cigarettes, uncomplicated; X58.XXXD Exposure to other specified factors, subsequent encounter | CPT/HCPCS: 99215; G0463 ==

== ENCOUNTER 2018-10-20 09:55 | Outpatient (CLI) | payer MEDICARE ==
[2018-10-20] MEDS ORDERED: XYLOCAINE TOPICAL 4% TP ONE (10:29)
[2018-10-21] MEDS ORDERED: AD OINTMENT TP SCH (10:00)
== END 2018-10-20 09:56 | disposition home or self-care (01) ==
LOC: WOUND 09:55
PROVIDERS: ATTEND Surgery
DX: I87.311 Chronic venous hypertension (idiopathic) with ulcer of right lower extremity (principal); L97.812 Non-pressure chronic ulcer of other part of right lower leg with fat layer exposed; I70.235 Atherosclerosis of native arteries of right leg with ulceration of other part of foot; L97.512 Non-pressure chronic ulcer of other part of right foot with fat layer exposed; S90.415D Abrasion, left lesser toe(s), subsequent encounter; E44.0 Moderate protein-calorie malnutrition; M05.59 Rheumatoid polyneuropathy with rheumatoid arthritis of multiple sites; I87.2 Venous insufficiency (chronic) (peripheral); M19.90 Unspecified osteoarthritis, unspecified site; F17.210 Nicotine dependence, cigarettes, uncomplicated; X58.XXXD Exposure to other specified factors, subsequent encounter

== ENCOUNTER 2018-10-23 11:54 | Outpatient (CLI) | payer MEDICARE | END 2018-10-23 11:55 | disposition home or self-care (01) | LOC: WOUND 11:54 | PROVIDERS: ATTEND Surgery | DX: I87.311 Chronic venous hypertension (idiopathic) with ulcer of right lower extremity (principal); L97.812 Non-pressure chronic ulcer of other part of right lower leg with fat layer exposed; I70.235 Atherosclerosis of native arteries of right leg with ulceration of other part of foot; L97.512 Non-pressure chronic ulcer of other part of right foot with fat layer exposed; S90.415D Abrasion, left lesser toe(s), subsequent encounter; E44.0 Moderate protein-calorie malnutrition; M05.59 Rheumatoid polyneuropathy with rheumatoid arthritis of multiple sites; I87.2 Venous insufficiency (chronic) (peripheral); M19.90 Unspecified osteoarthritis, unspecified site; F17.210 Nicotine dependence, cigarettes, uncomplicated; X58.XXXD Exposure to other specified factors, subsequent encounter | CPT/HCPCS: 99214; G0463 ==

== ENCOUNTER 2018-10-30 11:54 | Outpatient (CLI) | payer MEDICARE | END 2018-10-30 11:55 | disposition home or self-care (01) | LOC: WOUND 11:54 | PROVIDERS: ATTEND Surgery | DX: I87.311 Chronic venous hypertension (idiopathic) with ulcer of right lower extremity (principal); L97.811 Non-pressure chronic ulcer of other part of right lower leg limited to breakdown of skin; I70.235 Atherosclerosis of native arteries of right leg with ulceration of other part of foot; L97.511 Non-pressure chronic ulcer of other part of right foot limited to breakdown of skin; E44.0 Moderate protein-calorie malnutrition; M05.59 Rheumatoid polyneuropathy with rheumatoid arthritis of multiple sites; I87.2 Venous insufficiency (chronic) (peripheral); M19.90 Unspecified osteoarthritis, unspecified site; M06.9 Rheumatoid arthritis, unspecified; F17.210 Nicotine dependence, cigarettes, uncomplicated | CPT/HCPCS: 99214; G0463 ==

== ENCOUNTER 2018-11-03 10:05 | Outpatient (CLI) | payer MEDICARE ==
[2018-11-03] MEDS ORDERED: XYLOCAINE TOPICAL 2% 30ML TP ONE (10:45)
[2018-11-03] MEDS ORDERED: XYLOCAINE TOPICAL 4% TP ONE (10:45)
== END 2018-11-03 10:06 | disposition home or self-care (01) ==
LOC: WOUND 10:05
PROVIDERS: ATTEND Surgery
DX: I87.311 Chronic venous hypertension (idiopathic) with ulcer of right lower extremity (principal); L97.812 Non-pressure chronic ulcer of other part of right lower leg with fat layer exposed; I70.235 Atherosclerosis of native arteries of right leg with ulceration of other part of foot; L97.512 Non-pressure chronic ulcer of other part of right foot with fat layer exposed; I87.2 Venous insufficiency (chronic) (peripheral); M05.59 Rheumatoid polyneuropathy with rheumatoid arthritis of multiple sites; E44.0 Moderate protein-calorie malnutrition; M19.90 Unspecified osteoarthritis, unspecified site; F17.290 Nicotine dependence, other tobacco product, uncomplicated

== ENCOUNTER 2018-11-06 11:45 | Outpatient (CLI) | payer MEDICARE | END 2018-11-06 11:46 | disposition home or self-care (01) | LOC: WOUND 11:45 | PROVIDERS: ATTEND Surgery | DX: I87.311 Chronic venous hypertension (idiopathic) with ulcer of right lower extremity (principal); L97.811 Non-pressure chronic ulcer of other part of right lower leg limited to breakdown of skin; I70.235 Atherosclerosis of native arteries of right leg with ulceration of other part of foot; L97.511 Non-pressure chronic ulcer of other part of right foot limited to breakdown of skin; E44.0 Moderate protein-calorie malnutrition; M05.59 Rheumatoid polyneuropathy with rheumatoid arthritis of multiple sites; I87.2 Venous insufficiency (chronic) (peripheral); M19.90 Unspecified osteoarthritis, unspecified site; M06.9 Rheumatoid arthritis, unspecified; F17.210 Nicotine dependence, cigarettes, uncomplicated | CPT/HCPCS: 99213; G0463 ==

== ENCOUNTER 2018-11-10 09:51 | Outpatient (CLI) | payer MEDICARE ==
[2018-11-10] MEDS ORDERED: XYLOCAINE TOPICAL 4% TP ONE (10:30)
[2018-11-11] MEDS ORDERED: AD OINTMENT TP SCH (10:30)
== END 2018-11-10 09:52 | disposition home or self-care (01) ==
LOC: WOUND 09:51
PROVIDERS: ATTEND Surgery
DX: I87.311 Chronic venous hypertension (idiopathic) with ulcer of right lower extremity (principal); L97.811 Non-pressure chronic ulcer of other part of right lower leg limited to breakdown of skin; I70.235 Atherosclerosis of native arteries of right leg with ulceration of other part of foot; L97.511 Non-pressure chronic ulcer of other part of right foot limited to breakdown of skin; E44.0 Moderate protein-calorie malnutrition; M05.59 Rheumatoid polyneuropathy with rheumatoid arthritis of multiple sites; I87.2 Venous insufficiency (chronic) (peripheral); M19.90 Unspecified osteoarthritis, unspecified site; M06.9 Rheumatoid arthritis, unspecified; F17.210 Nicotine dependence, cigarettes, uncomplicated

== ENCOUNTER 2018-11-20 13:24 | Outpatient (CLI) | payer MEDICARE | END 2018-11-20 13:25 | disposition home or self-care (01) | LOC: WOUND 13:24 | PROVIDERS: ATTEND Surgery | DX: I87.311 Chronic venous hypertension (idiopathic) with ulcer of right lower extremity (principal); L97.811 Non-pressure chronic ulcer of other part of right lower leg limited to breakdown of skin; I70.235 Atherosclerosis of native arteries of right leg with ulceration of other part of foot; L97.511 Non-pressure chronic ulcer of other part of right foot limited to breakdown of skin; M05.59 Rheumatoid polyneuropathy with rheumatoid arthritis of multiple sites; E44.0 Moderate protein-calorie malnutrition; I87.2 Venous insufficiency (chronic) (peripheral); M06.9 Rheumatoid arthritis, unspecified; M19.90 Unspecified osteoarthritis, unspecified site; F17.290 Nicotine dependence, other tobacco product, uncomplicated | CPT/HCPCS: 99214; G0463 ==

== ENCOUNTER 2018-11-24 10:04 | Outpatient (CLI) | payer MEDICARE ==
[2018-11-24] MEDS ORDERED: XYLOCAINE TOPICAL 4% TP ONE (11:10)
[2018-11-25] MEDS ORDERED: AD OINTMENT TP SCH (10:00)
== END 2018-11-24 10:05 | disposition home or self-care (01) ==
LOC: WOUND 10:04
PROVIDERS: ATTEND Surgery
DX: I87.311 Chronic venous hypertension (idiopathic) with ulcer of right lower extremity (principal); L97.812 Non-pressure chronic ulcer of other part of right lower leg with fat layer exposed; I70.235 Atherosclerosis of native arteries of right leg with ulceration of other part of foot; L97.512 Non-pressure chronic ulcer of other part of right foot with fat layer exposed; E44.0 Moderate protein-calorie malnutrition; M05.59 Rheumatoid polyneuropathy with rheumatoid arthritis of multiple sites; I87.2 Venous insufficiency (chronic) (peripheral); M19.90 Unspecified osteoarthritis, unspecified site; F17.290 Nicotine dependence, other tobacco product, uncomplicated

== ENCOUNTER 2018-11-27 11:52 | Outpatient (CLI) | payer MEDICARE | END 2018-11-27 11:53 | disposition home or self-care (01) | LOC: WOUND 11:52 | PROVIDERS: ATTEND Surgery | DX: I87.311 Chronic venous hypertension (idiopathic) with ulcer of right lower extremity (principal); L97.812 Non-pressure chronic ulcer of other part of right lower leg with fat layer exposed; I70.235 Atherosclerosis of native arteries of right leg with ulceration of other part of foot; L97.512 Non-pressure chronic ulcer of other part of right foot with fat layer exposed; E44.0 Moderate protein-calorie malnutrition; M05.59 Rheumatoid polyneuropathy with rheumatoid arthritis of multiple sites; I87.2 Venous insufficiency (chronic) (peripheral); M19.90 Unspecified osteoarthritis, unspecified site; F17.290 Nicotine dependence, other tobacco product, uncomplicated | CPT/HCPCS: 99214; G0463; G0463-25 ==

== ENCOUNTER 2018-12-05 10:00 | Outpatient (CLI) | payer MEDICARE ==
[2018-12-05] MEDS ORDERED: XYLOCAINE TOPICAL 4% TP ONE (11:00)
[2018-12-05] MEDS ORDERED: AD OINTMENT TP PRN (11:00)
== END 2018-12-05 10:01 | disposition home or self-care (01) ==
LOC: WOUND 10:00
PROVIDERS: ATTEND Surgery
DX: I87.311 Chronic venous hypertension (idiopathic) with ulcer of right lower extremity (principal); L97.812 Non-pressure chronic ulcer of other part of right lower leg with fat layer exposed; I70.235 Atherosclerosis of native arteries of right leg with ulceration of other part of foot; L97.512 Non-pressure chronic ulcer of other part of right foot with fat layer exposed; E44.0 Moderate protein-calorie malnutrition; M05.59 Rheumatoid polyneuropathy with rheumatoid arthritis of multiple sites; I87.2 Venous insufficiency (chronic) (peripheral); M19.90 Unspecified osteoarthritis, unspecified site; F17.290 Nicotine dependence, other tobacco product, uncomplicated
CPT/HCPCS: 99213; A6250; G0463

== ENCOUNTER 2018-12-08 13:07 | Outpatient (CLI) | payer MEDICARE ==
[2018-12-08] MEDS ORDERED: XYLOCAINE TOPICAL 4% TP ONE (13:52)
== END 2018-12-08 13:08 | disposition home or self-care (01) ==
LOC: WOUND 13:07
PROVIDERS: ATTEND Surgery
DX: I87.311 Chronic venous hypertension (idiopathic) with ulcer of right lower extremity (principal); L97.812 Non-pressure chronic ulcer of other part of right lower leg with fat layer exposed; I70.235 Atherosclerosis of native arteries of right leg with ulceration of other part of foot; L97.512 Non-pressure chronic ulcer of other part of right foot with fat layer exposed; E44.0 Moderate protein-calorie malnutrition; M05.59 Rheumatoid polyneuropathy with rheumatoid arthritis of multiple sites; I87.2 Venous insufficiency (chronic) (peripheral); M19.90 Unspecified osteoarthritis, unspecified site; F17.290 Nicotine dependence, other tobacco product, uncomplicated
CPT/HCPCS: 99215; G0463

== ENCOUNTER 2018-12-12 13:17 | Outpatient (CLI) | payer MEDICARE ==
[2018-12-12] MEDS ORDERED: XYLOCAINE TOPICAL 4% TP ONE (14:30)
[2018-12-12] MEDS ORDERED: AD OINTMENT TP PRN (14:30)
== END 2018-12-12 13:18 | disposition home or self-care (01) ==
LOC: WOUND 13:17
PROVIDERS: ATTEND Surgery
DX: I87.311 Chronic venous hypertension (idiopathic) with ulcer of right lower extremity (principal); L97.812 Non-pressure chronic ulcer of other part of right lower leg with fat layer exposed; I70.235 Atherosclerosis of native arteries of right leg with ulceration of other part of foot; L97.511 Non-pressure chronic ulcer of other part of right foot limited to breakdown of skin; I87.2 Venous insufficiency (chronic) (peripheral); M05.59 Rheumatoid polyneuropathy with rheumatoid arthritis of multiple sites; M19.90 Unspecified osteoarthritis, unspecified site; E44.0 Moderate protein-calorie malnutrition; F17.290 Nicotine dependence, other tobacco product, uncomplicated

== ENCOUNTER 2018-12-16 14:10 | Outpatient (CLI) | payer MEDICARE | END 2018-12-16 14:11 | disposition home or self-care (01) | LOC: WOUND 14:10 | PROVIDERS: ATTEND Surgery | DX: I87.311 Chronic venous hypertension (idiopathic) with ulcer of right lower extremity (principal); L97.812 Non-pressure chronic ulcer of other part of right lower leg with fat layer exposed; I70.235 Atherosclerosis of native arteries of right leg with ulceration of other part of foot; L97.511 Non-pressure chronic ulcer of other part of right foot limited to breakdown of skin; I87.2 Venous insufficiency (chronic) (peripheral); M05.59 Rheumatoid polyneuropathy with rheumatoid arthritis of multiple sites; M19.90 Unspecified osteoarthritis, unspecified site; E44.0 Moderate protein-calorie malnutrition; F17.290 Nicotine dependence, other tobacco product, uncomplicated | CPT/HCPCS: 99215; G0463 ==

== ENCOUNTER 2018-12-19 13:27 | Outpatient (CLI) | payer MEDICARE ==
[2018-12-19] MEDS ORDERED: XYLOCAINE TOPICAL 4% TP ONE (13:35)
[2018-12-20] MEDS ORDERED: AD OINTMENT TP SCH (10:00)
== END 2018-12-19 13:28 | disposition home or self-care (01) ==
LOC: WOUND 13:27
PROVIDERS: ATTEND Surgery
DX: I87.311 Chronic venous hypertension (idiopathic) with ulcer of right lower extremity (principal); L97.812 Non-pressure chronic ulcer of other part of right lower leg with fat layer exposed; I87.2 Venous insufficiency (chronic) (peripheral); M05.59 Rheumatoid polyneuropathy with rheumatoid arthritis of multiple sites; M19.90 Unspecified osteoarthritis, unspecified site; E44.0 Moderate protein-calorie malnutrition; F17.290 Nicotine dependence, other tobacco product, uncomplicated

== ENCOUNTER 2018-12-23 13:54 | Outpatient (CLI) | payer MEDICARE | END 2018-12-23 13:55 | disposition home or self-care (01) | LOC: WOUND 13:54 | PROVIDERS: ATTEND Surgery | DX: I87.311 Chronic venous hypertension (idiopathic) with ulcer of right lower extremity (principal); L97.812 Non-pressure chronic ulcer of other part of right lower leg with fat layer exposed; M05.59 Rheumatoid polyneuropathy with rheumatoid arthritis of multiple sites; M19.90 Unspecified osteoarthritis, unspecified site; E44.0 Moderate protein-calorie malnutrition; F17.290 Nicotine dependence, other tobacco product, uncomplicated | CPT/HCPCS: 99214; G0463 ==

== ENCOUNTER 2018-12-30 13:42 | Outpatient (CLI) | payer MEDICARE | END 2018-12-30 13:43 | disposition home or self-care (01) | LOC: WOUND 13:42 | PROVIDERS: ATTEND Surgery | DX: I87.311 Chronic venous hypertension (idiopathic) with ulcer of right lower extremity (principal); L97.812 Non-pressure chronic ulcer of other part of right lower leg with fat layer exposed; M05.59 Rheumatoid polyneuropathy with rheumatoid arthritis of multiple sites; M19.90 Unspecified osteoarthritis, unspecified site; E44.0 Moderate protein-calorie malnutrition; F17.290 Nicotine dependence, other tobacco product, uncomplicated | CPT/HCPCS: 99213; G0463 ==

== ENCOUNTER 2019-01-02 09:55 | Outpatient (CLI) | payer MEDICARE ==
[2019-01-02] MEDS ORDERED: XYLOCAINE TOPICAL 4% TP ONE (11:00)
[2019-01-02] MEDS ORDERED: XYLOCAINE TOPICAL 2% 30ML TP ONE (11:00)
== END 2019-01-02 09:56 | disposition home or self-care (01) ==
LOC: WOUND 09:55
PROVIDERS: ATTEND Surgery
DX: I87.311 Chronic venous hypertension (idiopathic) with ulcer of right lower extremity (principal); L97.812 Non-pressure chronic ulcer of other part of right lower leg with fat layer exposed; I87.2 Venous insufficiency (chronic) (peripheral); M05.59 Rheumatoid polyneuropathy with rheumatoid arthritis of multiple sites; M19.90 Unspecified osteoarthritis, unspecified site; E44.0 Moderate protein-calorie malnutrition; F17.290 Nicotine dependence, other tobacco product, uncomplicated

== ENCOUNTER 2019-01-06 13:27 | Outpatient (CLI) | payer MEDICARE | END 2019-01-06 13:28 | disposition home or self-care (01) | LOC: WOUND 13:27 | PROVIDERS: ATTEND Surgery | DX: I87.311 Chronic venous hypertension (idiopathic) with ulcer of right lower extremity (principal); L97.812 Non-pressure chronic ulcer of other part of right lower leg with fat layer exposed; I70.235 Atherosclerosis of native arteries of right leg with ulceration of other part of foot; L97.511 Non-pressure chronic ulcer of other part of right foot limited to breakdown of skin; I87.2 Venous insufficiency (chronic) (peripheral); M05.59 Rheumatoid polyneuropathy with rheumatoid arthritis of multiple sites; M19.90 Unspecified osteoarthritis, unspecified site; E44.0 Moderate protein-calorie malnutrition; F17.290 Nicotine dependence, other tobacco product, uncomplicated | CPT/HCPCS: 99214; G0463 ==

== ENCOUNTER 2019-01-09 10:02 | Outpatient (CLI) | payer MEDICARE ==
[2019-01-09] MEDS ORDERED: XYLOCAINE TOPICAL 4% TP ONE (10:14)
== END 2019-01-09 10:03 | disposition home or self-care (01) ==
LOC: WOUND 10:02
PROVIDERS: ATTEND Surgery
DX: I87.311 Chronic venous hypertension (idiopathic) with ulcer of right lower extremity (principal); L97.812 Non-pressure chronic ulcer of other part of right lower leg with fat layer exposed; I70.235 Atherosclerosis of native arteries of right leg with ulceration of other part of foot; L97.511 Non-pressure chronic ulcer of other part of right foot limited to breakdown of skin; I87.2 Venous insufficiency (chronic) (peripheral); M05.59 Rheumatoid polyneuropathy with rheumatoid arthritis of multiple sites; M19.90 Unspecified osteoarthritis, unspecified site; E44.0 Moderate protein-calorie malnutrition; F17.290 Nicotine dependence, other tobacco product, uncomplicated

== ENCOUNTER 2019-01-13 11:00 | Outpatient (CLI) | payer MEDICARE | END 2019-01-13 11:01 | disposition home or self-care (01) | LOC: WOUND 11:00 | PROVIDERS: ATTEND Surgery | DX: I87.311 Chronic venous hypertension (idiopathic) with ulcer of right lower extremity (principal); L97.812 Non-pressure chronic ulcer of other part of right lower leg with fat layer exposed; I70.235 Atherosclerosis of native arteries of right leg with ulceration of other part of foot; L97.511 Non-pressure chronic ulcer of other part of right foot limited to breakdown of skin; I87.2 Venous insufficiency (chronic) (peripheral); M05.59 Rheumatoid polyneuropathy with rheumatoid arthritis of multiple sites; M19.90 Unspecified osteoarthritis, unspecified site; E44.0 Moderate protein-calorie malnutrition; F17.290 Nicotine dependence, other tobacco product, uncomplicated | CPT/HCPCS: 99214; G0463 ==

== ENCOUNTER 2019-01-16 09:45 | Outpatient (CLI) | payer MEDICARE ==
[2019-01-16] MEDS ORDERED: XYLOCAINE TOPICAL 4% TP ONE (10:08)
== END 2019-01-16 09:46 | disposition home or self-care (01) ==
LOC: WOUND 09:45
PROVIDERS: ATTEND Surgery
DX: I87.311 Chronic venous hypertension (idiopathic) with ulcer of right lower extremity (principal); L97.812 Non-pressure chronic ulcer of other part of right lower leg with fat layer exposed; M05.59 Rheumatoid polyneuropathy with rheumatoid arthritis of multiple sites; M19.90 Unspecified osteoarthritis, unspecified site; E44.0 Moderate protein-calorie malnutrition; F17.290 Nicotine dependence, other tobacco product, uncomplicated

== ENCOUNTER 2019-01-20 10:03 | Outpatient (CLI) | payer MEDICARE | END 2019-01-20 10:04 | disposition home or self-care (01) | LOC: WOUND 10:03 | PROVIDERS: ATTEND Surgery | DX: I87.311 Chronic venous hypertension (idiopathic) with ulcer of right lower extremity (principal); L97.812 Non-pressure chronic ulcer of other part of right lower leg with fat layer exposed; M05.59 Rheumatoid polyneuropathy with rheumatoid arthritis of multiple sites; M19.90 Unspecified osteoarthritis, unspecified site; E44.0 Moderate protein-calorie malnutrition; F17.290 Nicotine dependence, other tobacco product, uncomplicated | CPT/HCPCS: 99214; G0463 ==

== ENCOUNTER 2019-01-23 09:59 | Outpatient (CLI) | payer MEDICARE ==
[2019-01-23] MEDS ORDERED: XYLOCAINE TOPICAL 4% TP ONE (10:30)
[2019-01-23] MEDS ORDERED: AD OINTMENT TP PRN (12:08)
== END 2019-01-23 10:00 | disposition home or self-care (01) ==
LOC: WOUND 09:59
PROVIDERS: ATTEND Surgery
DX: I87.311 Chronic venous hypertension (idiopathic) with ulcer of right lower extremity (principal); L97.812 Non-pressure chronic ulcer of other part of right lower leg with fat layer exposed; M05.59 Rheumatoid polyneuropathy with rheumatoid arthritis of multiple sites; M19.90 Unspecified osteoarthritis, unspecified site; E44.0 Moderate protein-calorie malnutrition; F17.290 Nicotine dependence, other tobacco product, uncomplicated
CPT/HCPCS: A6250

== ENCOUNTER 2019-01-27 09:52 | Outpatient (CLI) | payer MEDICARE | END 2019-01-27 09:53 | disposition home or self-care (01) | LOC: WOUND 09:52 | PROVIDERS: ATTEND Surgery | DX: I87.311 Chronic venous hypertension (idiopathic) with ulcer of right lower extremity (principal); L97.812 Non-pressure chronic ulcer of other part of right lower leg with fat layer exposed; M05.59 Rheumatoid polyneuropathy with rheumatoid arthritis of multiple sites; M19.90 Unspecified osteoarthritis, unspecified site; E44.0 Moderate protein-calorie malnutrition; F17.290 Nicotine dependence, other tobacco product, uncomplicated | CPT/HCPCS: 99213; G0463 ==